=== PATIENT | male | born 1985 | race Caucasian/White ===

== ENCOUNTER 2018-02-08 19:56 | Emergency (ER) | payer SELFPAY ==
[2018-02-08 20:35] LABS: Absolute Monocytes 0.9 K/uL (0.1-1.3); Absolute Neutrophil 4.7 K/uL (1.8-8.0); Basophils % 0.8 % (0-1.3); Eosinophils % 3.7 % (0-4.4); Hematocrit 42.6 % (39.6-49.0); Lymphocytes % 25.3 % (15.3-44.8); MCH 30.9 pg (27.0-35.0); MCV 91.9 fL (80-100); MPV 8.7 fL (7.6-11.3); Monocytes % 11.6 % (3.3-12.3); RBC Red Blood Cell Count 4.63 M/uL (4.33-5.43)
[2018-02-08 20:37] LABS: Protime INR 0.96
[2018-02-08 20:45] LABS: Barbiturates NEGATIVE (NEGATIVE); Benzodiazepines NEGATIVE (NEGATIVE); Cocaine NEGATIVE (NEGATIVE); METHAMPHETAM NEGATIVE (NEGATIVE); Methadone NEGATIVE (NEGATIVE); Opiates NEGATIVE (NEGATIVE); Phencyclidine NEGATIVE (NEGATIVE); THC Cannibis NEGATIVE (NEGATIVE)
[2018-02-08 20:50] LABS: ALT/SGPT 30 U/L (12-78); AST/SGOT 14 U/L (15-37); Albumin 3.9 g/dL (3.4-5.0); Alkaline Phosphatase 88 U/L (45-117); BUN Blood Urea Nitrogen 6 mg/dL (7-18); Bicarbonate 25 mmol/L (21-32); Bilirubin Direct < 0.1 mg/dL (0-0.2); Bilirubin Total 0.2 mg/dL (0.2-1.0); Glucose Level 90 mg/dL (74-106); Protein, Total 7.3 g/dL (6.4-8.2); Sodium Level 141 mmol/L (136-145)
[2018-02-08 20:59] LABS: Urine Blood NEGATIVE (NEG); Urine Glucose NEGATIVE (NEG); Urine Protein NEGATIVE (NEG); Urine Specific Gravity 1.015 (1.005-1.030)
[2018-02-09] MEDS ORDERED: QUETIAPINE 100MG TAB ONE ×2 (03:23→22:33)
[2018-02-09] MEDS ORDERED: GABAPENTIN 300 MG CAP ONE ×2 (10:37→22:10)
[2018-02-09] MEDS ORDERED: FLUOXETINE 20 MG CAP PO ONE (11:00)
[2018-02-09] MEDS ORDERED: BUSPIRONE HCL 5 MG TABLET PO ONE (11:00)
--- NOTE | 2018-02-10 08:14 | EKG ---
Test Date: 2018-02-08 Test Time: 20:27:30 Milk Handler: VERONIQUE MEASUREMENT RESULTS: Intervals: Rate: 84 FL: 142 QRSD: 86 QT: 360 QTc: 425 [place]: P: 39 FL: 142 QRS: 51 T: 40 INTERPRETIVE STATEMENTS: Normal sinus rhythm Normal ECG No previous ECG available for comparison Electronically Signed On 02-10-18 08:13:52 CDT by Ray Romo
--- NOTE | 2018-02-10 08:53 | ER ---
Nurse's Notes [facility] Name: Joaquin Poe Age: 32 yrs Sex: Male : 1985 Arrival Date: 02/08/2018 Time: 20:01 Bed 18 Private MD: Diagnosis: Bipolar disorder;Major depressive disorder, recurrent;Suicidal ideations Presentation: 02/08 20:21 Presenting complaint: BROUGHT IN BY [facility] FOR SUICIDAL IDEATION, H/O SAME bp MX TIMES, FAILED OUTPATIENT THERAPY THROUGH [facility]. Transition of care: patient was not received from another setting of care. Onset of symptoms is unknown. Risk Assessment: Do you want to hurt yourself or someone else? Patient reports desire/thoughts of hurting themselves or someone else. Provider notified. Initial Sepsis Screen: Does the patient meet any 2 criteria? No. Patient's initial sepsis screen is negative. Does the patient have a suspected source of infection? No. Patient's initial sepsis screen is negative. Care prior to arrival: None. 20:21 Method Of Arrival: Law Enforcement: [facility] bp 20:21 Acuity: KIMBERLY 2 bp Triage Assessment: 20:23 General: Appears in no apparent distress. comfortable, Behavior is calm, cooperative, bp appropriate for age. Pain: Denies pain. Historical: - Allergies: 20:29 Keflex; bp - Home Meds: 20:20 fluoxetine 20 mg Oral cap 3 caps once daily [Active]; quetiapine 100 mg oral tab 1 tab bp every morning [Active]; quetiapine 300 mg oral tab 1 tab nightly [Active]; gabapentin 600 mg oral tab 1 tab 3 times per day [Active]; buspirone 10 mg Oral tab 1 tab 2 times per day [Active]; - PMHx: 20:29 Bipolar disorder; SCHIZOAFFECTIVE D/O; Depression; bp - Immunization history:: Adult Immunizations up to date. - Social history:: Smoking status: Patient uses tobacco products, smokes one pack cigarettes per day. - Family history:: not pertinent. - Ebola Screening: : Patient negative for fever greater than or equal to 101.5 degrees Fahrenheit, and additional compatible Ebola Virus Disease symptoms Patient denies exposure to infectious person Patient denies travel to an Ebola-affected area in the 21 days before illness onset No symptoms or risks identified at this time. - Hospitalizations: : No recent hospitalization is reported. Screenin:15 Abuse screen: Denies threats or abuse. Denies injuries from another. Nutritional bp screening: No deficits noted. Tuberculosis screening: No symptoms or risk factors identified. Fall Risk None identified. Assessment: 20:15 General: Appears in no apparent distress. comfortable, Behavior is calm, cooperative, bp appropriate for age. Pain: Denies pain. Neuro: Level of Consciousness is awake, alert, obeys commands, Oriented to person, place, time, situation, Appropriate for age. Cardiovascular: No deficits noted. Respiratory: Airway is patent Respiratory effort is even, unlabored, Respiratory pattern is regular, symmetrical. GI: No signs and/or symptoms were reported involving the gastrointestinal system. : No signs and/or symptoms were reported regarding the genitourinary system. EENT: No deficits noted. Derm: No deficits noted. Musculoskeletal: Circulation, motion, and sensation intact. Range of motion: intact in all extremities. 23:51 Reassessment: ALL CURRENT ORDERS COMPLETED, MEDICALLY CLEARED, PSYCH PLACEMENT PENDING. bp 02/09 07:05 Reassessment: pt resting in stretcher, eyes closed, respirations even and unlabored. la1 08:03 Reassessment: Patient appears in no apparent distress at this time. Patient and/or la1 family updated on plan of care and expected duration. Pain level reassessed. 09:26 Reassessment: Patient appears in no apparent distress at this time. No changes from la1 previously documented assessment. Patient and/or family updated on plan of care and expected duration. Pain level reassessed. Patient is alert, oriented x 3, equal unlabored respirations, skin warm/dry/pink. 10:13 General: Appears in no apparent distress. comfortable, Behavior is calm, cooperative, aj1 appropriate for age. Pain: Denies pain. Neuro: Level of Consciousness is awake, alert, obeys commands, Oriented to person, place, time, situation. Cardiovascular: Patient's skin is warm and dry. Respiratory: Airway is patent Respiratory effort is even, unlabored, Respiratory pattern is regular, symmetrical. GI: No signs and/or symptoms were reported involving the gastrointestinal system. : No signs and/or symptoms were reported regarding the genitourinary system. EENT: No signs and/or symptoms were reported regarding the EENT system. Derm: No signs and/or symptoms reported regarding the dermatologic system. Skin is pink, warm \T\ dry. normal. Musculoskeletal: No signs and/or symptoms reported regarding the musculoskeletal system. Circulation, motion, and sensation intact. 10:35 Reassessment: Patient states that his back is starting to hurts. Reports that he aj1 usually takes gabapentin to manage his pain. He would like his normal morning medications. Notified Dr. Shea. Order received. 11:30 Reassessment: Patient appears in no apparent distress at this time. No changes from aj1 previously documented assessment. Patient and/or family updated on plan of care and expected duration. Pain level reassessed. 12:30 Reassessment: Patient appears in no apparent distress at this time. No changes from aj1 previously documented assessment. Patient and/or family updated on plan of care and expected duration. Pain level reassessed. Patient is alert, oriented x 3, equal unlabored respirations, skin warm/dry/pink. 13:14 Reassessment: Patient appears in no apparent distress at this time. No changes from aj1 previously documented assessment. Patient and/or family updated on plan of care and expected duration. Pain level reassessed. Patient is alert, oriented x 3, equal unlabored respirations, skin warm/dry/pink. 15:15 Reassessment: Patient appears in no apparent distress at this time. No changes from aj1 previously documented assessment. Patient and/or family updated on plan of care and expected duration. Pain level reassessed. Patient is alert, oriented x 3, equal unlabored respirations, skin warm/dry/pink. 16:15 Reassessment: Patient appears in no apparent distress at this time. No changes from aj1 previously documented assessment. Patient and/or family updated on plan of care and expected duration. Pain level reassessed. Patient is alert, oriented x 3, equal unlabored respirations, skin warm/dry/pink. 17:15 Reassessment: Patient appears in no apparent distress at this time. No changes from aj1 previously documented assessment. Patient and/or family updated on plan of care and expected duration. Pain level reassessed. Patient is alert, oriented x 3, equal unlabored respirations, skin warm/dry/pink. 18:15 Reassessment: Patient appears in no apparent distress at this time. No changes from aj1 previously documented assessment. Patient and/or family updated on plan of care and expected duration. Pain level reassessed. Patient is alert, oriented x 3, equal unlabored respirations, skin warm/dry/pink. 19:09 Reassessment: Patient appears in no apparent distress at this time. No changes from aj1 previously documented assessment. Patient and/or family updated on plan of care and expected duration. Pain level reassessed. Patient is alert, oriented x 3, equal unlabored respirations, skin warm/dry/pink. 19:20 Reassessment: Patient appears in no apparent distress at this time. No changes from jd3 previously documented assessment. Patient and/or family updated on plan of care and expected duration. Pain level reassessed. Patient is alert, oriented x 3, equal unlabored respirations, skin warm/dry/pink. sitter at bedside, pt resting in bed watching TV. 20:00 Reassessment: Patient appears in no apparent distress at this time. No changes from jd3 previously documented assessment. Patient and/or family updated on plan of care and expected duration. Pain level reassessed. Patient is alert, oriented x 3, equal unlabored respirations, skin warm/dry/pink. 21:00 Reassessment: Patient appears in no apparent distress at this time. No changes from jd3 previously documented assessment. Patient and/or family updated on plan of care and expected duration. Pain level reassessed. Patient is alert, oriented x 3, equal unlabored respirations, skin warm/dry/pink. 22:00 Reassessment: Patient appears in no apparent distress at this time. No changes from jd3 previously documented assessment. Patient and/or family updated on plan of care and expected duration. Pain level reassessed. Patient is alert, oriented x 3, equal unlabored respirations, skin warm/dry/pink. asking for night time medications, provider notified, new orders received, see MAR. 23:00 Reassessment: Patient appears in no apparent distress at this time. Patient and/or jd3 family updated on plan of care and expected duration. Pain level reassessed. Patient is alert, oriented x 3, equal unlabored respirations, skin warm/dry/pink. resting in bed, snack given. 02/10 00:00 Reassessment: Patient appears in no apparent distress at this time. Patient and/or jd3 family updated on plan of care and expected duration. Pain level reassessed. Patient is alert, oriented x 3, equal unlabored respirations, skin warm/dry/pink. resting in bed with eyes closed. sitter at bedside. 01:00 Reassessment: Patient appears in no apparent distress at this time. No changes from jd3 previously documented assessment. Patient and/or family updated on plan of care and expected duration. Pain level reassessed. Patient is alert, oriented x 3, equal unlabored respirations, skin warm/dry/pink. 02:00 Reassessment: Patient appears in no apparent distress at this time. No changes from jd3 previously documented assessment. Patient and/or family updated on plan of care and expected duration. Pain level reassessed. Patient is alert, oriented x 3, equal unlabored respirations, skin warm/dry/pink. 03:00 Reassessment: Patient appears in no apparent distress at this time. No changes from jd3 previously documented assessment. Patient and/or family updated on plan of care and expected duration. Pain level reassessed. Patient is alert, oriented x 3, equal unlabored respirations, skin warm/dry/pink. 04:00 Reassessment: Patient appears in no apparent distress at this time. No changes from jd3 previously documented assessment. Patient and/or family updated on plan of care and expected duration. Pain level reassessed. Patient is alert, oriented x 3, equal unlabored respirations, skin warm/dry/pink. 05:00 Reassessment: Patient appears in no apparent distress at this time. No changes from jd3 previously documented assessment. Patient and/or family updated on plan of care and expected duration. Pain level reassessed. Patient is alert, oriented x 3, equal unlabored respirations, skin warm/dry/pink. 06:00 Reassessment: Patient appears in no apparent distress at this time. No changes from jd3 previously documented assessment. Patient and/or family updated on plan of care and expected duration. Pain level reassessed. Patient is alert, oriented x 3, equal unlabored respirations, skin warm/dry/pink. Psych: 02/08 20:15 Subjective: Patient's mood is sad, Delusions are denied, Hallucinations are denied bp Having thoughts of suicide. Plan for suicide is RUN INTO TRAFFIC. Objective: Patient is cooperative, Speech is normal, Affect is appropriate. Interventions: Removed personal items and placed in bag. Patient placed in hospital gown. Searched person for dangerous items. Urine collected and sent for urine drug test. Belonging list filled out. Suicide Risk Assessment: Sad Person Scale: Sex of patient: Male: Score 1 point. Age of patient: Score 1 point if patient 15-34. Depression: Score 1 point if signs of depression are present. Previous Attempt: Score 1 point if patient has previously attempted suicide. Substance Abuse: Score 1 point if patient abuses alcohol or drugs. Rational Thinking: Score 0 point if patient has rational thinking. Social Support: Score 1 point if social support is lacking and/or unavailable. Organized Plan: Score 0 if patient did not have an organized plan in place. Relationship: Score 1 point if patient is , , , or for a single male Chronic Sickness: Score 0 point if patient does not have a chronic illness, debilitating, or severe disorder. TOTAL POINTS: If total points are 7-10, the proposed clinical action is to hospitalize or commit. Implement suicide precautions. Safety Checks: Personal items have been removed. Door is open. No visitors are present at this time. Pt denies substance abuse. Commitment: Patient will be a voluntary commitment. Commitment papers completed. Vital Signs: 20:28 BP 134 / 86; Pulse 82; Resp 16; Temp 98; Pulse Ox 98% ; Weight 86.18 kg; Height 6 ft. bp (182.88 cm); 23:09 BP 116 / 89; Pulse 79; Resp 14; Pulse Ox 97% on R/A; bp 02/09 01:29 BP 119 / 82 LA Supine (auto/reg); Pulse 79 MON; Resp 14 S; Pulse Ox 98% on R/A; ds4 05:07 BP 116 / 76 LA Supine (auto/reg); Pulse 76 MON; Resp 14 S; Pulse Ox 98% on R/A; ds4 09:14 BP 112 / 75; Pulse 72; Resp 18; Temp 97.8; Pulse Ox 98% on R/A; fm2 13:15 BP 120 / 84; Pulse 82; Resp 18; Temp 97.7; Pulse Ox 99% on R/A; fm2 17:20 BP 129 / 78; Pulse 92; Resp 18; Temp 98.7; Pulse Ox 98% on R/A; fm2 20:00 BP 124 / 87; Pulse 76; Resp 18; Temp 99; Pulse Ox 97% ; mh6 09/24 00:00 BP 106 / 72; Pulse 82; Resp 16; Temp 98.2; Pulse Ox 96% on R/A; Pain 0/10; mh6 04:00 BP 99 / 74; Pulse 71; Resp 16; Temp 97.9; Pulse Ox 96% on R/A; Pain 0/10; mh6 08:28 BP 110 / 80; Pulse 86; Resp 20; Temp 98.2; hj 02/08 20:28 Body Mass Index 25.77 (86.18 kg, 182.88 cm) bp ED Course: 02/08 20:01 Patient arrived in ED. rn 20:01 Broderick Martin MD is Attending Physician. rn 20:01 Alverto Jarrett RN is Primary Nurse. bp 20:15 Safety Checks: Personal items have been removed. The door is open or patient has been bp placed in a hallway bed/chair. There are no family/friend visitors at this time Sitter present at this time. 20:15 Patient has correct armband on for positive identification. Placed in gown. Bed in low bp position. Side rails up X2. 20:23 Triage completed. bp 20:23 Arm band placed on. bp 20:30 Safety Checks: Personal items have been removed. The door is open or patient has been bp placed in a hallway bed/chair. Sitter present at this time. 20:30 Inserted saline lock: 20 gauge in right antecubital area, using aseptic technique. bp Blood collected. 20:32 Initial lab(s) drawn, by ED staff, sent to lab. Urine collected: clean catch specimen, bp clear, Legal drug screen obtained per protocol. 20:43 personal belongings catalogued. Clothing and personal items sent to [facility] with cc security. Medications logged and to be sent to pharmacy [facility] in the morning. 20:45 Safety Checks: Personal items have been removed. The door is open or patient has been bp placed in a hallway bed/chair. There are no family/friend visitors at this time Sitter present at this time. 21:00 Safety Checks: Personal items have been removed. The door is open or patient has been bp placed in a hallway bed/chair. There are no family/friend visitors at this time Sitter present at this time. 21:00 Safety checks: Items removed: yes. Door open/sign placed on door: yes. Family/friend ds4 present: no. Sitter present: Yes. 21:15 Safety Checks: Personal items have been removed. The door is open or patient has been bp placed in a hallway bed/chair. There are no family/friend visitors at this time Sitter present at this time. 21:15 Safety checks: Items removed: yes. Door open/sign placed on door: yes. Family/friend ds4 present: no. Sitter present: Yes. 21:30 Safety Checks: Personal items have been removed. The door is open or patient has been bp placed in a hallway bed/chair. There are no family/friend visitors at this time Sitter present at this time. 21:30 Safety checks: Items removed: yes. Door open/sign placed on door: yes. Family/friend ds4 present: no. Sitter present: Yes. 21:45 Safety Checks: Personal items have been removed. The door is open or patient has been bp placed in a hallway bed/chair. There are no family/friend visitors at this time Sitter present at this time. 22:00 Safety Checks: Personal items have been removed. The door is open or patient has been bp placed in a hallway bed/chair. There are no family/friend visitors at this time Sitter present at this time. 22:15 Safety Checks: Personal items have been removed. The door is open or patient has been bp placed in a hallway bed/chair. There are no family/friend visitors at this time Sitter present at this time. 22:30 Safety Checks: Personal items have been removed. The door is open or patient has been bp placed in a hallway bed/chair. There are no family/friend visitors at this time Sitter present at this time. 22:45 Safety Checks: Personal items have been removed. The door is open or patient has been bp placed in a hallway bed/chair. There are no family/friend visitors at this time Sitter present at this time. 23:00 Safety Checks: Personal items have been removed. The door is open or patient has been bp placed in a hallway bed/chair. There are no family/friend visitors at this time Sitter present at this time. 23:15 Safety Checks: Personal items have been removed. The door is open or patient has been bp placed in a hallway bed/chair. There are no family/friend visitors at this time Sitter present at this time. 23:30 Safety Checks: Personal items have been removed. The door is open or patient has been bp placed in a hallway bed/chair. There are no family/friend visitors at this time Sitter present at this time. 23:45 Safety Checks: Personal items have been removed. The door is open or patient has been bp placed in a hallway bed/chair. There are no family/friend visitors at this time Sitter present at this time. 02/09 00:00 Safety Checks: Personal items have been removed. The door is open or patient has been bp placed in a hallway bed/chair. There are no family/friend visitors at this time Sitter present at this time. 00:11 Safety checks: Door open/sign placed on door: Sitter present: Yes. Safety checks: Items ds4 removed: yes. Family/friend present: no. 00:15 Safety Checks: Personal items have been removed. The door is open or patient has been bp placed in a hallway bed/chair. There are no family/friend visitors at this time Sitter present at this time. 00:30 Safety Checks: Personal items have been removed. The door is open or patient has been bp placed in a hallway bed/chair. There are no family/friend visitors at this time Sitter present at this time. 00:45 Safety Checks: Personal items have been removed. The door is open or patient has been cc3 placed in a hallway bed/chair. There are no family/friend visitors at this time Sitter present at this time. 01:00 Safety Checks: Personal items have been removed. The door is open or patient has been cc3 placed in a hallway bed/chair. There are no family/friend visitors at this time Sitter present at this time. 01:15 Safety Checks: Personal items have been removed. The door is open or patient has been cc3 placed in a hallway bed/chair. There are no family/friend visitors at this time Sitter present at this time. 01:17 Safety checks: Items removed: yes. Door open/sign placed on door: yes. Family/friend ds4 present: no. Sitter present: Yes. 01:30 Safety Checks: Personal items have been removed. The door is open or patient has been cc3 placed in a hallway bed/chair. There are no family/friend visitors at this time Sitter present at this time. 01:45 Safety Checks: Personal items have been removed. The door is open or patient has been bp placed in a hallway bed/chair. There are no family/friend visitors at this time Sitter present at this time. 02:00 Safety Checks: Personal items have been removed. The door is open or patient has been bp placed in a hallway bed/chair. There are no family/friend visitors at this time Sitter present at this time. 02:00 Safety checks: Items removed: yes. Door open/sign placed on door: yes. Family/friend cc present: no. Sitter present: Yes. 02:15 Safety Checks: Personal items have been removed. The door is open or patient has been bp placed in a hallway bed/chair. There are no family/friend visitors at this time Sitter present at this time. 02:15 Safety checks: Items removed: yes. Door open/sign placed on door: yes. Family/friend cc present: no. Sitter present: Yes. 02:30 Safety Checks: Personal items have been removed. The door is open or patient has been bp placed in a hallway bed/chair. There are no family/friend visitors at this time Sitter present at this time. 02:45 Safety Checks: Personal items have been removed. The door is open or patient has been bp placed in a hallway bed/chair. There are no family/friend visitors at this time Sitter present at this time. 03:00 Safety Checks: Personal items have been removed. The door is open or patient has been bp placed in a hallway bed/chair. There are no family/friend visitors at this time Sitter present at this time. 03:15 Safety Checks: Personal items have been removed. The door is open or patient has been bp placed in a hallway bed/chair. There are no family/friend visitors at this time Sitter present at this time. 03:30 Safety Checks: Personal items have been removed. The door is open or patient has been bp placed in a hallway bed/chair. There are no family/friend visitors at this time Sitter present at this time. 03:45 Safety Checks: Personal items have been removed. The door is open or patient has been cc3 placed in a hallway bed/chair. There are no family/friend visitors at this time Sitter present at this time. 04:00 Safety Checks: Personal items have been removed. The door is open or patient has been cc3 placed in a hallway bed/chair. There are no family/friend visitors at this time Sitter present at this time. 04:15 Safety Checks: Personal items have been removed. The door is open or patient has been cc3 placed in a hallway bed/chair. There are no family/friend visitors at this time Sitter present at this time. 04:30 Safety Checks: Personal items have been removed. The door is open or patient has been cc3 placed in a hallway bed/chair. There are no family/friend visitors at this time Sitter present at this time. 04:45 Safety Checks: Personal items have been removed. The door is open or patient has been cc3 placed in a hallway bed/chair. There are no family/friend visitors at this time Sitter present at this time. 05:00 Safety Checks: Personal items have been removed. The door is open or patient has been bp placed in a hallway bed/chair. There are no family/friend visitors at this time Sitter present at this time. 05:15 Safety Checks: Personal items have been removed. The door is open or patient has been bp placed in a hallway bed/chair. There are no family/friend visitors at this time Sitter present at this time. 05:30 Safety Checks: Personal items have been removed. The door is open or patient has been bp placed in a hallway bed/chair. There are no family/friend visitors at this time Sitter present at this time. 05:45 Safety Checks: Personal items have been removed. The door is open or patient has been bp placed in a hallway bed/chair. There are no family/friend visitors at this time Sitter present at this time. 06:00 Safety Checks: Personal items have been removed. The door is open or patient has been bp placed in a hallway bed/chair. There are no family/friend visitors at this time Sitter present at this time. 06:15 Safety Checks: Personal items have been removed. The door is open or patient has been cc3 placed in a hallway bed/chair. There are no family/friend visitors at this time Sitter present at this time. 06:30 Safety Checks: Personal items have been removed. The door is open or patient has been cc3 placed in a hallway bed/chair. There are no family/friend visitors at this time Sitter present at this time. 06:45 Safety Checks: Personal items have been removed. The door is open or patient has been bp placed in a hallway bed/chair. There are no family/friend visitors at this time Sitter present at this time. 07:00 Safety Checks: Personal items have been removed. The door is not opened, nor is patient fm2 placed in a hallway bed/chair. Sitter present at this time. 07:15 Safety Checks: Personal items have been removed. The door is not opened, nor is patient fm2 placed in a hallway bed/chair. Sitter present at this time. 07:30 Safety Checks: Personal items have been removed. The door is not opened, nor is patient fm2 placed in a hallway bed/chair. Sitter present at this time. 07:45 Safety Checks: Personal items have been removed. The door is open or patient has been fm2 placed in a hallway bed/chair. Sitter present at this time. 08:00 Safety Checks: Personal items have been removed. The door is open or patient has been fm2 placed in a hallway bed/chair. Sitter present at this time. Safety Checks:. 08:15 Safety Checks: Personal items have been removed. The door is open or patient has been fm2 placed in a hallway bed/chair. Sitter present at this time. 08:30 Safety Checks: Personal items have been removed. The door is open or patient has been fm2 placed in a hallway bed/chair. Sitter present at this time. 08:45 Safety Checks: Personal items have been removed. The door is open or patient has been fm2 placed in a hallway bed/chair. Sitter present at this time. 09:00 Safety Checks: Personal items have been removed. The door is open or patient has been fm2 placed in a hallway bed/chair. Sitter present at this time. 09:15 Safety Checks: Personal items have been removed. The door is open or patient has been fm2 placed in a hallway bed/chair. Sitter present at this time. 09:30 Safety Checks: Personal items have been removed. The door is open or patient has been fm2 placed in a hallway bed/chair. Sitter present at this time. 09:45 Safety Checks: Personal items have been removed. The door is open or patient has been fm2 placed in a hallway bed/chair. Sitter present at this time. 10:00 Safety Checks: Personal items have been removed. The door is open or patient has been fm2 placed in a hallway bed/chair. Sitter present at this time. 10:15 Safety Checks: Personal items have been removed. The door is open or patient has been fm2 placed in a hallway bed/chair. Sitter present at this time. 10:30 Safety Checks: Personal items have been removed. The door is open or patient has been fm2 placed in a hallway bed/chair. Sitter present at this time. 10:45 Safety Checks: Personal items have been removed. The door is open or patient has been fm2 placed in a hallway bed/chair. Sitter present at this time. 11:00 Safety Checks: Personal items have been removed. The door is open or patient has been fm2 placed in a hallway bed/chair. Sitter present at this time. 11:15 Safety Checks: Personal items have been removed. The door is open or patient has been fm2 placed in a hallway bed/chair. Sitter present at this time. 11:30 Safety Checks: Personal items have been removed. The door is open or patient has been fm2 placed in a hallway bed/chair. Sitter present at this time. 11:45 Safety Checks: Personal items have been removed. The door is open or patient has been fm2 placed in a hallway bed/chair. Sitter present at this time. 12:00 Safety Checks: Personal items have been removed. The door is open or patient has been fm2 placed in a hallway bed/chair. Sitter present at this time. 12:15 Safety checks: Items removed: yes. Door open/sign placed on door: yes. Family/friend dh3 present: no. Sitter present: Yes. 12:30 Safety checks: Items removed: yes. Door open/sign placed on door: yes. Family/friend dh3 present: no. Sitter present: Yes. 12:45 Safety Checks: Personal items have been removed. The door is open or patient has been fm2 placed in a hallway bed/chair. Sitter present at this time. 13:00 Safety Checks: Personal items have been removed. The door is open or patient has been fm2 placed in a hallway bed/chair. Sitter present at this time. 13:15 Safety Checks: Personal items have been removed. The door is open or patient has been fm2 placed in a hallway bed/chair. Sitter present at this time. 13:30 Safety Checks: Personal items have been removed. The door is open or patient has been fm2 placed in a hallway bed/chair. Sitter present at this time. 13:30 Safety checks: Items removed: yes. Door open/sign placed on door: yes. Family/friend dh3 present: no. Sitter present: Yes. 13:45 Safety Checks: Personal items have been removed. The door is open or patient has been fm2 placed in a hallway bed/chair. Sitter present at this time. 13:45 Safety checks: Items removed: yes. Door open/sign placed on door: yes. Family/friend dh3 present: no. Sitter present: Yes. 14:00 Safety Checks: Personal items have been removed. The door is open or patient has been fm2 placed in a hallway bed/chair. Sitter present at this time. 14:00 Safety checks: Items removed: yes. Door open/sign placed on door: yes. Family/friend dh3 present: no. Sitter present: Yes. 14:15 Safety Checks: Personal items have been removed. The door is open or patient has been fm2 placed in a hallway bed/chair. Sitter present at this time. 14:15 Safety checks: Items removed: yes. Door open/sign placed on door: yes. Family/friend dh3 present: no. Sitter present: Yes. 14:30 Safety Checks: Personal items have been removed. The door is open or patient has been fm2 placed in a hallway bed/chair. Sitter present at this time. 14:30 Safety checks: Items removed: yes. Door open/sign placed on door: yes. Family/friend dh3 present: no. Sitter present: Yes. 14:45 Safety Checks: Personal items have been removed. The door is open or patient has been fm2 placed in a hallway bed/chair. Sitter present at this time. 15:00 Safety Checks: Personal items have been removed. The door is open or patient has been fm2 placed in a hallway bed/chair. Sitter present at this time. 15:15 Safety Checks: Personal items have been removed. The door is open or patient has been fm2 placed in a hallway bed/chair. Sitter present at this time. 15:30 Safety Checks: Personal items have been removed. The door is open or patient has been fm2 placed in a hallway bed/chair. Sitter present at this time. 15:45 Safety Checks: Personal items have been removed. The door is open or patient has been fm2 placed in a hallway bed/chair. Sitter present at this time. 16:00 Safety Checks: Personal items have been removed. The door is open or patient has been fm2 placed in a hallway bed/chair. Sitter present at this time. 16:15 Safety Checks: Personal items have been removed. The door is open or patient has been fm2 placed in a hallway bed/chair. Sitter present at this time. 16:30 Safety Checks: Personal items have been removed. The door is open or patient has been fm2 placed in a hallway bed/chair. Sitter present at this time. 16:45 Safety Checks: Personal items have been removed. The door is open or patient has been fm2 placed in a hallway bed/chair. Sitter present at this time. 17:00 Safety Checks: Personal items have been removed. The door is open or patient has been fm2 placed in a hallway bed/chair. Sitter present at this time. 17:15 Safety Checks: Personal items have been removed. The door is open or patient has been fm2 placed in a hallway bed/chair. Sitter present at this time. 17:30 Safety Checks: Personal items have been removed. The door is open or patient has been fm2 placed in a hallway bed/chair. Sitter present at this time. 17:45 Safety Checks: Personal items have been removed. The door is open or patient has been fm2 placed in a hallway bed/chair. Sitter present at this time. 18:00 Safety Checks: Personal items have been removed. The door is open or patient has been fm2 placed in a hallway bed/chair. Sitter present at this time. 18:15 Safety Checks: Personal items have been removed. The door is open or patient has been fm2 placed in a hallway bed/chair. Sitter present at this time. 18:33 Safety Checks: Personal items have been removed. The door is open or patient has been fm2 placed in a hallway bed/chair. Sitter present at this time. 18:45 Safety Checks: Personal items have been removed. The door is open or patient has been fm2 placed in a hallway bed/chair. Sitter present at this time. 19:00 Safety Checks: Personal items have been removed. The door is open or patient has been fm2 placed in a hallway bed/chair. Sitter present at this time. 19:00 Safety checks: Items removed: yes. Door open/sign placed on door: yes. Family/friend cc1 present: no. Sitter present: Yes. 19:15 Safety checks: Items removed: yes. Door open/sign placed on door: yes. Family/friend cc1 present: no. Sitter present: Yes. 19:30 Safety checks: Items removed: yes. Door open/sign placed on door: yes. Family/friend cc1 present: no. Sitter present: Yes. 19:45 Safety Checks: Personal items have been removed. The door is open or patient has been jd3 placed in a hallway bed/chair. There are no family/friend visitors at this time Sitter present at this time. 20:00 No apparent distress. Resting quietly. Safety Checks: Personal items have been removed. mh6 The door is open or patient has been placed in a hallway bed/chair. There are no family/friend visitors at this time Sitter present at this time. 20:15 Safety Checks: Personal items have been removed. The door is open or patient has been jd3 placed in a hallway bed/chair. There are no family/friend visitors at this time Sitter present at this time. 20:30 Safety Checks: Personal items have been removed. The door is open or patient has been jd3 placed in a hallway bed/chair. There are no family/friend visitors at this time Sitter present at this time. 20:45 Safety Checks: Personal items have been removed. The door is open or patient has been jd3 placed in a hallway bed/chair. There are no family/friend visitors at this time Sitter present at this time. 21:00 Safety Checks: Personal items have been removed. The door is open or patient has been jd3 placed in a hallway bed/chair. There are no family/friend visitors at this time Sitter present at this time. 21:15 Safety Checks: Personal items have been removed. The door is open or patient has been jd3 placed in a hallway bed/chair. There are no family/friend visitors at this time Sitter present at this time. 21:30 Safety Checks: Personal items have been removed. The door is open or patient has been jd3 placed in a hallway bed/chair. There are no family/friend visitors at this time Sitter present at this time. 21:45 Safety Checks: Personal items have been removed. The door is open or patient has been jd3 placed in a hallway bed/chair. There are no family/friend visitors at this time Sitter present at this time. 22:00 Safety Checks: Personal items have been removed. The door is open or patient has been jd3 placed in a hallway bed/chair. There are no family/friend visitors at this time Sitter present at this time. 22:15 Safety Checks: Personal items have been removed. The door is open or patient has been jd3 placed in a hallway bed/chair. There are no family/friend visitors at this time Sitter present at this time. 22:30 Safety Checks: Personal items have been removed. The door is open or patient has been jd3 placed in a hallway bed/chair. There are no family/friend visitors at this time Sitter present at this time. 22:45 Safety Checks: Personal items have been removed. The door is open or patient has been jd3 placed in a hallway bed/chair. There are no family/friend visitors at this time Sitter present at this time. 23:00 Safety Checks: Personal items have been removed. The door is open or patient has been jd3 placed in a hallway bed/chair. There are no family/friend visitors at this time Sitter present at this time. 23:15 Safety Checks: Personal items have been removed. The door is open or patient has been jd3 placed in a hallway bed/chair. There are no family/friend visitors at this time Sitter present at this time. 23:30 Safety Checks: Personal items have been removed. The door is open or patient has been jd3 placed in a hallway bed/chair. There are no family/friend visitors at this time Sitter present at this time. 23:45 No apparent distress. Resting quietly. Safety Checks: Personal items have been removed. mh6 The door is open or patient has been placed in a hallway bed/chair. There are no family/friend visitors at this time Sitter present at this time. 02/10 00:00 No apparent distress. Resting quietly. Patient requests food. Safety Checks: Personal mh6 items have been removed. The door is open or patient has been placed in a hallway bed/chair. There are no family/friend visitors at this time Sitter present at this time. 00:15 No apparent distress. Appears to be sleeping. Safety Checks: Personal items have been mh6 removed. The door is open or patient has been placed in a hallway bed/chair. There are no family/friend visitors at this time Sitter present at this time. 00:30 No apparent distress. Appears to be sleeping. Safety Checks: Personal items have been mh6 removed. The door is open or patient has been placed in a hallway bed/chair. There are no family/friend visitors at this time Sitter present at this time. 00:45 Appears to be sleeping. No apparent distress. Safety Checks: Personal items have been mh6 removed. The door is open or patient has been placed in a hallway bed/chair. There are no family/friend visitors at this time Sitter present at this time. 01:00 No apparent distress. Appears to be sleeping. Safety Checks: Personal items have been mh6 removed. The door is open or patient has been placed in a hallway bed/chair. There are no family/friend visitors at this time Sitter present at this time. 01:15 No apparent distress. Appears to be sleeping. Safety Checks: Personal items have been mh6 removed. The door is open or patient has been placed in a hallway bed/chair. There are no family/friend visitors at this time Sitter present at this time. 01:30 No apparent distress. Appears to be sleeping. Safety Checks: Personal items have been mh6 removed. The door is open or patient has been placed in a hallway bed/chair. There are no family/friend visitors at this time Sitter present at this time. 01:45 No apparent distress. Appears to be sleeping. Safety Checks: Personal items have been mh6 removed. The door is open or patient has been placed in a hallway bed/chair. There are no family/friend visitors at this time Sitter present at this time. 02:00 No apparent distress. Appears to be sleeping. Safety Checks: Personal items have been mh6 removed. The door is open or patient has been placed in a hallway bed/chair. There are no family/friend visitors at this time Sitter present at this time. 02:15 No apparent distress. Appears to be sleeping. Safety Checks: Personal items have been mh6 removed. The door is open or patient has been placed in a hallway bed/chair. There are no family/friend visitors at this time Sitter present at this time. 02:30 No apparent distress. Appears to be sleeping. Safety Checks: Personal items have been mh6 removed. The door is open or patient has been placed in a hallway bed/chair. There are no family/friend visitors at this time Sitter present at this time. 02:45 No apparent distress. Appears to be sleeping. Safety Checks: Personal items have been mh6 removed. The door is open or patient has been placed in a hallway bed/chair. There are no family/friend visitors at this time Sitter present at this time. 03:00 No apparent distress. Appears to be sleeping. Safety Checks: Personal items have been mh6 removed. The door is open or patient has been placed in a hallway bed/chair. There are no family/friend visitors at this time Sitter present at this time. 03:15 No apparent distress. Appears to be sleeping. Safety Checks: Personal items have been mh6 removed. The door is open or patient has been placed in a hallway bed/chair. There are no family/friend visitors at this time Sitter present at this time. 03:30 No apparent distress. Appears to be sleeping. Safety Checks: Personal items have been mh6 removed. The door is open or patient has been placed in a hallway bed/chair. There are no family/friend visitors at this time Sitter present at this time. 03:45 No apparent distress. Appears to be sleeping. Safety Checks: Personal items have been mh6 removed. The door is open or patient has been placed in a hallway bed/chair. There are no family/friend visitors at this time Sitter present at this time. 04:00 No apparent distress. Appears to be sleeping. Safety Checks: Personal items have been mh6 removed. The door is open or patient has been placed in a hallway bed/chair. There are no family/friend visitors at this time Sitter present at this time. 04:15 No apparent distress. Appears to be sleeping. Safety Checks: Personal items have been mh6 removed. The door is open or patient has been placed in a hallway bed/chair. There are no family/friend visitors at this time Sitter present at this time. 04:30 No apparent distress. Appears to be sleeping. Safety Checks: Personal items have been mh6 removed. The door is open or patient has been placed in a hallway bed/chair. There are no family/friend visitors at this time Sitter present at this time. 04:45 No apparent distress. Appears to be sleeping. Safety Checks: Personal items have been mh6 removed. The door is open or patient has been placed in a hallway bed/chair. There are no family/friend visitors at this time Sitter present at this time. 05:00 Appears to be sleeping. Safety Checks: Personal items have been removed. The door is mh6 open or patient has been placed in a hallway bed/chair. There are no family/friend visitors at this time Sitter present at this time. 05:15 No apparent distress. Appears to be sleeping. Safety Checks: Personal items have been mh6 removed. The door is open or patient has been placed in a hallway bed/chair. There are no family/friend visitors at this time Sitter present at this time. 05:30 No apparent distress. Appears to be sleeping. Safety Checks: Personal items have been mh6 removed. The door is open or patient has been placed in a hallway bed/chair. There are no family/friend visitors at this time Sitter present at this time. 05:45 No apparent distress. Appears to be sleeping. Safety Checks: Personal items have been mh6 removed. The door is open or patient has been placed in a hallway bed/chair. There are no family/friend visitors at this time Sitter present at this time. 06:00 No apparent distress. Appears to be sleeping. Safety Checks: Personal items have been mh6 removed. The door is open or patient has been placed in a hallway bed/chair. There are no family/friend visitors at this time Sitter present at this time. 06:15 No apparent distress. Appears to be sleeping. Safety Checks: Personal items have been mh6 removed. The door is open or patient has been placed in a hallway bed/chair. There are no family/friend visitors at this time Sitter present at this time. 06:30 No apparent distress. Appears to be sleeping. Safety Checks: Personal items have been mh6 removed. The door is open or patient has been placed in a hallway bed/chair. There are no family/friend visitors at this time Sitter present at this time. 06:45 No apparent distress. Appears to be sleeping. Safety Checks: Personal items have been mh6 removed. The door is open or patient has been placed in a hallway bed/chair. There are no family/friend visitors at this time Sitter present at this time. 07:00 No apparent distress. Appears to be sleeping. Safety Checks: Personal items have been mh6 removed. The door is open or patient has been placed in a hallway bed/chair. There are no family/friend visitors at this time Sitter present at this time. 07:00 No apparent distress. Appears to be sleeping. Safety Checks: Personal items have been ss3 removed. The door is open or patient has been placed in a hallway bed/chair. There are no family/friend visitors at this time Sitter present at this time. 07:15 No apparent distress. Appears to be sleeping. Safety Checks: Personal items have been ss3 removed. The door is open or patient has been placed in a hallway bed/chair. There are no family/friend visitors at this time Sitter present at this time. 07:30 AWAKE.HAVING HIS BREAKFAST. Patient requests liquids. Safety Checks: Personal items ss3 have been removed. The door is open or patient has been placed in a hallway bed/chair. There are no family/friend visitors at this time Sitter present at this time. 07:45 Resting quietly. Watching TV. Patient requests rest room assistance. Safety Checks: ss3 Personal items have been removed. The door is open or patient has been placed in a hallway bed/chair. There are no family/friend visitors at this time Sitter present at this time. 07:57 Diet: Patient given a regular meal tray. mh5 08:00 No apparent distress. Safety Checks: Personal items have been removed. The door is open ss3 or patient has been placed in a hallway bed/chair. The door is not opened, nor is patient placed in a hallway bed/chair. Sitter present at this time. 08:15 No apparent distress. Patient requests rest room assistance. Safety Checks: Personal ss3 items have been removed. The door is open or patient has been placed in a hallway bed/chair. There are no family/friend visitors at this time Sitter present at this time. 08:30 No apparent distress. Patient requests liquids. [facility] [employer]. ss3 08:45 No apparent distress. Safety Checks: Personal items have been removed. The door is open ss3 or patient has been placed in a hallway bed/chair. A family member and/or friend is present and encouraged to stay. [facility] [employer] Operator talking to the patient. Sitter present at this time. Safety Checks: Personal items have been removed. The door is open or patient has been placed in a hallway bed/chair. A family member and/or friend is present and encouraged to stay. still with [facility] Rep. Sitter present at this time. 08:50 Attending Physician role handed off by Broderick Martin MD [facility] 08:50 Rito Shea MD is Attending Physician. marisela 09:00 No apparent distress. Awaiting disposition. ss3 09:15 No apparent distress. Awaiting: discharge.IV access removed. Safety Checks: Personal ss3 items have been removed. The door is open or patient has been placed in a hallway bed/chair. A family member and/or friend is present and encouraged to stay. [place] Rep. Sitter present at this time. Other: Processing discharge. Safety Checks: Personal items have been removed. The door is open or patient has been placed in a hallway bed/chair. Sitter present at this time. 09:17 No provider procedures requiring assistance completed. IV discontinued, intact, hj bleeding controlled, No redness/swelling at site. Pressure dressing applied. Administered Medications: 02/09 03:33 Drug: SEROquel 300 mg Route: PO; bp 04:30 Follow up: Response: No adverse reaction; Anxiety decreased bp 10:36 CANCELLED (Duplicate Order): PROzac 60 mg PO once aj1 10:37 Drug: Gabapentin 600 mg Route: PO; aj1 11:17 Drug: PROzac 60 mg Route: PO; aj1 11:17 Drug: busPIRone 10 mg Route: PO; aj1 22:32 Drug: SEROquel 300 mg Route: PO; jd3 23:39 Follow up: Response: No adverse reaction jd3 22:32 Drug: Gabapentin 600 mg Route: PO; jd3 23:39 Follow up: Response: No adverse reaction jd3 Outcome: 02/10 08:52 Discharge ordered by . marisela 09:17 Discharged to home ambulatory. 09:17 Condition: stable 09:17 Discharge instructions given to patient, Instructed on discharge instructions, follow up and referral plans. Demonstrated understanding of instructions, follow-up care. 09:18 Patient left the ED. hj Signatures: Opal Espinosa RN RN aj1 Rito Shea MD MD cha Nieto, Roman, MD MD rn Christian, Chelsea cc Cahoon, Charlie cc1 Troy Loving ds4 Mike Chapman RN RN laJaswant Jaramillo RN Mariam Fay RN RN tl2 Leah Barrett 5 Deja Hernandez 3 Jose Manuel Mckeon RN RN jAlverto Khan RN RN bp Habalo, Maria 6 Saira Hyman cc3 Kirill Lieberman 2 Luann Vuong ss3 Corrections: (The following items were deleted from the chart) 02/09 06:27 06:15 Safety Checks: Personal items have been removed. The door is open or patient has tl2 been placed in a hallway bed/chair. There are no family/friend visitors at this time Sitter present at this time. tl2 20:14 20:[address] [facility] 02/10 01:07 01:06 Reassessment: Patient appears in no apparent distress at this time. No changes jd3 from previously documented assessment. Patient and/or family updated on plan of care and expected duration. Pain level reassessed. Patient is alert, oriented x 3, equal unlabored respirations, skin warm/dry/pink. jd3 03:33 03:32 Reassessment: Patient appears in no apparent distress at this time. No changes jd3 from previously documented assessment. Patient and/or family updated on plan of care and expected duration. Pain level reassessed. Patient is alert, oriented x 3, equal unlabored respirations, skin warm/dry/pink. jd3
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
--- OUTSIDE RECORDS SUMMARY | 2018-02-10 11:59 | XMS REPORT | Clinical Summary ---
:1985 Author Organization [facility] Address [address] [place] [address] Care Team Providers Name Role Phone Asked, No Pcp Primary Care Provider Unavailable Allergies Active Allergy Reactions Severity Noted Date Comments Cephalexin Rash Low 07/25/2017 Current Medications Prescription Sig. Disp. Refills Start Date End Date Status sulfamethoxazole-trim Take 1 tablet 16 tablet 0 07/31/2017 08/08/2017 ethoprim (BACTRIM DS) by mouth every 800-160 mg per 12 (twelve) tabletIndications: hours for 8 Skin and Skin days. Structure Infection hydrOXYzine (ATARAX) Take 1 tablet 50 tablet 0 07/31/2017 08/30/2017 50 MG (50 mg total) tabletIndications: by mouth 3 Anxiety (three) times a day as needed for itching for up to 30 days. QUEtiapine (SEROquel) Take 1 tablet 30 tablet 0 07/31/2017 08/30/2017 100 MG (100 mg total) tabletIndications: by mouth every Psychosis morning for 30 days. QUEtiapine (SEROquel) Take 1 tablet 30 tablet 0 07/31/2017 08/30/2017 300 MG (300 mg total) tabletIndications: by mouth Psychosis nightly for 30 days. FLUoxetine (PROzac) Take 1 capsule 30 capsule 0 07/31/2017 08/30/2017 40 MG (40 mg total) capsuleIndications: by mouth daily Major Depressive for 30 days. Disorder traZODone (DESYREL) Take 1 tablet 30 tablet 0 07/31/2017 08/30/2017 50 MG (50 mg total) tabletIndications: by mouth insomnia associated nightly as with depression needed for sleep for up to 30 days. nicotine (NICODERM Place 1 patch 30 patch 0 07/31/2017 08/30/2017 CQ) 14 mg/24 on the skin hrIndications: daily for 30 Smoking Cessation days. clonAZEPAM (KlonoPIN) Take 1 tablet 60 tablet 0 09/11/2017 10/11/2017 0.5 MG (0.5 mg total) tabletIndications: by mouth 2 anxiety (two) times a day as needed for anxiety for up to 30 days. gabapentin Take 1 capsule 90 capsule 0 09/11/2017 10/11/2017 (NEURONTIN) 300 mg (300 mg total) capsuleIndications: by mouth 3 anxiety (three) times a day for 30 days. QUEtiapine (SEROquel) Take 1 tablet 30 tablet 0 09/11/2017 10/11/2017 100 MG (100 mg total) tabletIndications: by mouth every Depression Treatment morning for 30 Adjunct days. QUEtiapine (SEROquel) Take 1 tablet 30 tablet 0 09/11/2017 10/11/2017 300 MG (300 mg total) tabletIndications: by mouth Depression Treatment nightly for 30 Adjunct days. FLUoxetine (PROzac) Take 1 capsule 30 capsule 0 09/11/2017 10/11/2017 40 MG (40 mg total) capsuleIndications: by mouth every Anxiety with morning for 30 Depression days. traZODone (DESYREL) Take 1 tablet 30 tablet 0 09/11/2017 10/11/2017 50 MG (50 mg total) tabletIndications: by mouth insomnia associated nightly for 30 with depression days. nicotine polacrilex Chew 1 each (2 100 each 0 09/11/2017 10/11/2017 (NICORETTE) 2 mg mg total) every gumIndications: 2 (two) hours Smoking Cessation as needed (Cravings) for up to 30 days. Active Problems Problem Noted Date MDD (major depressive disorder), recurrent, severe, with psychosis 09/07/2017 Schizoaffective disorder, bipolar type 07/25/2017 Stimulant use disorder 07/25/2017 Anxiety disorder 07/25/2017 Encounters Date Type Specialty Care Team Description 01/26/2018 Intake Access N/A 09/06/2017 - Hospital Encounter Psychiatry Arun Benson MD 09/11/2017 07/25/2017 - Hospital Encounter Psychiatry Darya Davis MD 07/31/2017 Arun Benson MD after 02/09/2017 Social History Tobacco Use Types Packs/Day Years Used Date Never Assessed Sex Assigned at Date Recorded Not on file Last Filed Vital Signs Vital Sign Reading Time Taken Blood Pressure 132/71 09/11/2017 7:30 PM CDT Pulse 96 09/11/2017 7:30 PM CDT Temperature 36.2 C (97.1 F) 09/11/2017 7:30 PM CDT Respiratory Rate 18 09/11/2017 7:30 PM CDT Oxygen Saturation 96% 09/11/2017 7:30 PM CDT Inhaled Oxygen Concentration - - Weight 88.1 kg (194 lb 4.8 oz) 09/11/2017 6:32 AM CDT Height 182.9 cm (6') 09/08/2017 11:00 PM CDT Body Mass Index 26.35 09/11/2017 6:32 AM CDT Plan of Treatment Not on file Procedures Procedure Name Priority Date/Time Associated Comments Diagnosis ECG 12-LEAD STAT 09/07/2017 8:55 Results for this AM CDT procedure are in the results section. URINE DRUGS OF ABUSE Routine 07/26/2017 2:03 Results for this SCREEN PM [employer] procedure are in the results section. ECG 12-LEAD STAT 07/26/2017 8:33 Results for this AM [employer] procedure are in the results section. ZZESTIMATED GFR Routine 07/26/2017 6:44 Results for this AM [employer] procedure are in the results section. THYROID STIMULATING Routine 07/26/2017 6:44 Results for this HORMONE AM [employer] procedure are in the results section. LIPID PANEL Routine 07/26/2017 6:44 Results for this AM [employer] procedure are in the results section. HC COMPLETE BLD COUNT Routine 07/26/2017 6:44 Results for this W/AUTO DIFF AM [employer] procedure are in the results section. HEMOGLOBIN A1C Routine 07/26/2017 6:44 Results for this AM [employer] procedure are in the results section. COMPREHENSIVE Routine 07/26/2017 6:44 Results for this METABOLIC PANEL AM [employer] procedure are in the results section. after 02/09/2017 Results ECG 12 lead (09/07/2017 8:55 AM)Only the most recent of2 resultswithin the time period is included. Ventricular rate 87 [facility] Atrial rate 87 [facility] NV interval 122 [facility] QRSD interval 82 [facility] QT interval 366 [facility] QTC interval 440 [facility] P axis 1 47 [facility] QRS axis 1 62 [facility] T wave axis 45 [facility] EKG impression Normal sinus rhythm-Normal ECG-In automated [facility] comparison with ECG of 26-JUL-2017 08:33,-No significant change was found- Performing Organization Address [facility] Phone Number [facility] [address] [place] [address] Urine drugs of abuse screen (07/26/2017 2:03 PM) Amphetamine screen, urine Negative [facility] DEPARTMENT OF PATHOLOGY AND GENOMIC MEDICINE Barbiturate screen, urine Negative [facility]PART[facility] OF PATHOLOGY AND GENOMIC MEDICINE Benzodiazepine screen, Negative [facility] DEPARTMENT OF urine PATHOLOGY AND GENOMIC MEDICINE Cannabinoid screen, urine Negative [facility] DEPARTMENT OF PATHOLOGY AND GENOMIC MEDICINE Cocaine screen, urine Negative [facility] DEPARTMENT OF PATHOLOGY AND GENOMIC MEDICINE Methadone metabolite Negative [facility] DEPARTMENT OF (EDDP), urine PATHOLOGY AND GENOMIC MEDICINE Opiates screen, urine Negative [facility] DEPARTMENT OF PATHOLOGY AND GENOMIC MEDICINE Oxycodone screen, urine Negative [facility] DEPARTMENT OF PATHOLOGY AND GENOMIC MEDICINE Phencyclidine screen, urine Negative [facility] DEPARTMENT OF PATHOLOGY AND GENOMIC MEDICINE Tricyclic screen, urine Negative [facility] DEPARTMENT OF Comment: PATHOLOGY AND GENOMIC Drug screen minimum concentration of detectability MEDICINE [id number] ng/mL Barbiturates 200 ng/mL Tlsbqruezjuddqa935 ng/mL Rjdjmew932 ng/mL Tatrafltu701 ng/mL Cathjdi764 ng/mL Jlcoyisyt161 ng/mL Phencyclidine 25 ng/mL Rmvsgddvfnxc55 ng/mL Rxiznkujfv1500 ng/mL Negative test results indicates presumptive evidence of lack of clinically significant drug concentration in this urine specimen. Positive test results are presumptive evidence of clinically significant drug concentration in this urine specimen. Testing performed for medical purposes only. Specimen Urine Performing Organization Address [facility] Phone Number [facility] DEPARTMENT OF PATHOLOGY AND [address] [place] [address] [employer] MEDICINE Estimated GFR (07/26/2017 6:44 AM) GFR Non Af Amer >90 mL/min/1.73 m2 [facility] DEPARTMENT OF PATHOLOGY AND GENOMIC MEDICINE GFR Af Amer >90 mL/min/1.73 m2 [facility] DEPARTMENT OF Comment: PATHOLOGY AND GENOMIC Chronic kidney disease: <60 mL/min/1.73m2 MEDICINE Kidney failure: <15 mL/min/1.73m2 The estimated GFR is calculated from the IDMS-traceable Modification of Diet in Renal Disease Equation. The accuracy of the calculation is poor when the creatinine is normal. Calculated values >90 mL/min/1.73m2 are not reported. This equation has not been validated in children (<18 years), women, the elderly (>70 years), or ethnic groups other than Caucasians and Americans. Specimen Plasma specimen Performing Organization Address City/State/Zipcode Phone Number [facility] DEPARTMENT OF PATHOLOGY AND [address] [place] [phone] [employer] [facility] CBC with platelet and differential (07/26/2017 6:44 AM) WBC 8.95 4.50 - 11.00 k/uL [facility] DEPARTMENT OF PATHOLOGY AND GENOMIC MEDICINE RBC 4.66 4.40 - 6.00 m/uL [facility] DEPARTMENT OF PATHOLOGY AND GENOMIC MEDICINE HGB 14.1 14.0 - 18.0 g/dL [facility] DEPARTMENT OF PATHOLOGY AND GENOMIC MEDICINE HCT 43.6 41.0 - 51.0 % [facility] DEPARTMENT OF PATHOLOGY AND GENOMIC MEDICINE MCV 93.6 82.0 - 100.0 fL [facility] DEPARTMENT OF PATHOLOGY AND GENOMIC MEDICINE MCH 30.3 27.0 - 34.0 pg [facility] DEPARTMENT OF PATHOLOGY AND GENOMIC MEDICINE MCHC 32.3 31.0 - 37.0 g/dL [facility] DEPARTMENT OF PATHOLOGY AND GENOMIC MEDICINE RDW - SD 50.2 37.0 - 55.0 fL [facility] DEPARTMENT OF PATHOLOGY AND GENOMIC MEDICINE MPV 10.4 8.8 - 13.2 fL [facility] DEPARTMENT OF PATHOLOGY AND GENOMIC MEDICINE Platelet count 267 150 - 400 k/uL [facility] DEPARTMENT OF PATHOLOGY AND GENOMIC MEDICINE Nucleated RBC 0.00 /100 WBC [facility] DEPARTMENT OF PATHOLOGY AND GENOMIC MEDICINE Neutrophils 59.7 39.0 - 69.0 % [facility] DEPARTMENT OF PATHOLOGY AND GENOMIC MEDICINE Lymphocytes 25.5 25.0 - 45.0 % [facility] DEPARTMENT OF PATHOLOGY AND GENOMIC MEDICINE Monocytes 10.4 (H) 0.0 - 10.0 % [facility] DEPARTMENT OF PATHOLOGY AND GENOMIC MEDICINE Eosinophils 2.8 0.0 - 5.0 % [facility] DEPARTMENT OF PATHOLOGY AND GENOMIC MEDICINE Basophils 0.7 0.0 - 1.0 % [facility] DEPARTMENT OF PATHOLOGY AND GENOMIC MEDICINE Immature granulocytes 0.9Comment: 0.0 - 1.0 % [facility] DEPARTMENT OF "Immature PATHOLOGY AND GENOMIC granulocytes" MEDICINE (promyelocytes, myelocytes, metamyelocytes) Specimen Blood Performing Organization Address City/[facility] Phone Number [facility] DEPARTMENT OF PATHOLOGY AND [address] [place] [phone] [place] [address] Thyroid stimulating hormone (07/26/2017 6:44 AM) TSH 0.96 0.27 - 4.20 uIU/mL [facility] DEPARTMENT OF PATHOLOGY AND GENOMIC MEDICINE Specimen Plasma specimen Performing Organization Address City/[facility] Phone Number [facility] DEPARTMENT OF PATHOLOGY AND [address] [place] [address] Hemoglobin A1c (07/26/2017 6:44 AM) Hemoglobin A1C 5.3 4.0 - 5.6 % [facility] DEPARTMENT OF PATHOLOGY Comment: AND [facility] MEDICINE HbA1c cutoffs for diagnosing diabetes: 4.0% - 5.6%=normal 5.7% - 6.4%=increased risk for diabetes (prediabetes) >=6.5%=diabetes Goals for glycemic control (ADA 2016) < 7.0%Target for non adults with diabetes. More or less stringent targets may be appropriate for individual patients. <7.5% Target for Children and adolescents with type 1 diabetes. Specimen Blood Performing Organization Address [facility] Phone Number [facility] DEPARTMENT OF PATHOLOGY AND [address] [place] [address] Lipid panel (07/26/2017 6:44 AM) Cholesterol 193 <200 mg/dL [facility] DEPARTMENT OF PATHOLOGY AND GENOMIC MEDICINE Triglycerides 63 <150 mg/dL [facility] DEPARTMENT OF PATHOLOGY AND GENOMIC MEDICINE HDL cholesterol 66 >40 mg/dL [facility] DEPARTMENT OF PATHOLOGY AND GENOMIC MEDICINE LDL cholesterol 138 (H)Comment: Result <100 mg/dL [facility] DEPARTMENT OF obtained by direct LDL PATHOLOGY AND GENOMIC measurement MEDICINE Lipid panel interpretation SeeBelow [facility] DEPARTMENT OF Comment: PATHOLOGY AND GENOMIC Total Cholesterol (mg/dL) MEDICINE <200 Desirable 103-893Eqkwbhgilr-xocl >=240High Triglycerides (mg/dL) <150 Normal [id number]-xuty 200-499High >=500Very high HDL Cholesterol (mg/dL) <40Low (male) <40Low (female) LDL Cholesterol (mg/dL) <100 Optimal 100-129Near or above optimal 368-643Hvoqxsffcz-uukq 160-189High >=190Very high Risk Catergories that modify LDL goals. Risk CatergoriesLDL goal (mg/dL) CHD and CHD risk equivalent<100 (10-year risk >20%) Multiple (2+) risk factors <130 (10-year risk=<20%) 0-1 risk factors <160 (<10-year risk) Defining levels of lipids in metabolic syndrome Triglycerides>=150 mg/dL HDL Cholesterol Men<40 mg/dL Women<40 mg/dL Non-HDL cholesterol is a second target for therapy in persons with high triglycerides (>=200 mg/dL) Specimen Plasma specimen Performing Organization Address City/State/Zipcode Phone Number [facility] DEPARTMENT OF PATHOLOGY AND [address] [place] [address] [employer] [facility] Comprehensive metabolic panel (07/26/2017 6:44 AM) Sodium 138 135 - 148 mEq/L [facility] DEPARTMENT OF PATHOLOGY AND GENOMIC MEDICINE Potassium 3.9 3.5 - 5.0 mEq/L [facility] DEPARTMENT OF PATHOLOGY AND GENOMIC MEDICINE Chloride 100 98 - 112 mEq/L [facility] DEPARTMENT OF PATHOLOGY AND GENOMIC MEDICINE CO2 24 24 - 31 mEq/L [facility] DEPARTMENT OF PATHOLOGY AND GENOMIC MEDICINE Anion gap 14 7 - 15 mEq/L [facility] DEPARTMENT OF Comment: PATHOLOGY AND GENOMIC Starting from August , anion gap calculation MEDICINE no longer incorporates potassium. Please note the change. BUN 17 6 - 20 mg/dL [facility] DEPARTMENT OF PATHOLOGY AND GENOMIC MEDICINE Creatinine 0.9 0.7 - 1.2 mg/dL [facility] DEPARTMENT OF PATHOLOGY AND GENOMIC MEDICINE Glucose 89 65 - 99 mg/dL [facility] DEPARTMENT OF PATHOLOGY AND GENOMIC MEDICINE Calcium 9.2 8.3 - 10.2 mg/dL [facility] DEPARTMENT OF PATHOLOGY AND GENOMIC MEDICINE Protein 7.6 6.3 - 8.3 g/dL [facility] DEPARTMENT OF Comment: PATHOLOGY AND GENOMIC 4.6-7.0 g/dL MEDICINE 1 week 4.4-7.6 g/dL 7 months-1year5.1-7.3 g/dL 1-2 years5.6-7.5 g/dL >3 years6.0-8.0 g/dL 18-150 6.3-8.3 g/dL Albumin 3.9 3.5 - 5.0 g/dL [facility] DEPARTMENT OF PATHOLOGY AND GENOMIC MEDICINE A/G ratio 1.1 0.7 - 3.8 [facility] DEPARTMENT OF PATHOLOGY AND GENOMIC MEDICINE Alkaline phosphatase 75 40 - 129 U/L [facility] DEPARTMENT OF PATHOLOGY AND GENOMIC MEDICINE AST 22 10 - 50 U/L [facility] DEPARTMENT OF PATHOLOGY AND GENOMIC MEDICINE ALT 31 5 - 50 U/L [facility] DEPARTMENT OF PATHOLOGY AND GENOMIC MEDICINE Total bilirubin 0.4 0.0 - 1.2 mg/dL [facility] DEPARTMENT OF PATHOLOGY AND GENOMIC MEDICINE Specimen Plasma specimen Performing Organization Address City/State/Zipcode Phone Number [facility] DEPARTMENT OF PATHOLOGY AND [address] [place] [address] [employer] [facility] after 02/09/2017
--- OUTSIDE RECORDS SUMMARY | 2018-02-10 12:00 | XMS REPORT | Continuity of Care Document ---
:1985 Author Organization Interface Problems Problem Status Onset Classification Date Comments Source Date Reported NSTEMI Active [place] [id number] DRUG OVERDOSE Active [place] [id number] Illness, 11/05/2017 [facility] unspecified POISONING BY Active [facility] UNSP DRUG/MEDS/BIOL SUBST, ILLNESS, Active [facility] UNSPECIFIED ABDOMINAL Active [facility] AORTIC ANEURYSM, RUPTURED NON-ST Active [facility] ELEVATION (NSTEMI) MYOCARDIAL INF Medications Medication Details Route Status Patient Ordering Order Source Instructions Provider Date Klonopin 0.5 mg, 1 Inactive tab, Route: 2017 [facility] PO, Drug form: TAB, Daily, Dosing Weight 85.3, kg, Start date: 11/02/17 9:00:00 CDT, Duration: 30 day, Stop date: 12/01/17 9:00:00 CDTNotes: (Same As: KlonoPIN) Klonopin 0.5 mg, 1 No Longer tab, Route: Active 2017 [facility] PO, Drug form: TAB, BID, Dosing Weight 85.3, kg, Start date: 11/01/17 18:00:00 CDT, Duration: 30 day, Stop date: 12/01/17 17:00:00 CDTNotes: (Same As: KlonoPIN) Clonazepam 0.5 0.5 mg=1 tab, No Longer MG Oral Tablet PO, BID, # [address] [facility] [Klonopin] tab, 0 Refill(s) Sodium Chloride 250 mL, No Longer 0.9% IV Route: IVPB, Active 2017 [facility] Start date: 11/01/17 16:27:00 CDT, Duration: 30 day, Stop date: 12/01/17 16:26:00 CDT, PRN Line Flush BD Normal Saline 10 mL, Route: Inactive Flush IVP, Drug 2017 [facility] Form: INJ, PRN, PRN Line Flush, Start date: 11/01/17 16:26:00 CDT, Duration: 30 day, Stop date: 12/01/17 16:25:00 CDTNotes: (Same as: BD Posiflush) Ativan 1 mg, 0.5 mL, No Longer Route: IVP, 2017 [facility] Drug form: INJ, Q6H, Dosing Weight 85.3, kg, PRN Withdrawal, Start date: 11/01/17 16:19:00 CDT, Duration: 30 day, Stop date: 12/01/17 16:18:00 CDTNotes: (Same as: Ativan) Buspirone 10 mg, 1 tab, No Longer Route: PO, 2017 [facility] Drug form: TAB, BID, kg, Start date: 11/01/17 9:00:00 CDT, Duration: 30 day, Stop date: 11/30/17 17:00:00 CDTNotes: (Same As: BuSpar) Saline Flush 10 ml, Route: No Longer 0.9% IVP, Drug Active 2017 [facility] Form: INJ, Dosing Weight 85.3, kg, Q12H, Start date: 11/01/17 9:00:00 CDT, Duration: 30 day, Stop date: 11/30/17 21:00:00 CDTNotes: (Same as: BD Posiflush) gabapentin 300 300 mg, 1 No Longer MG Oral Capsule cap, Route: 2017 [facility] PO, Drug form: CAP, Q12H, kg, (CrCl 30 - 59 ml/min), Start date: 11/01/17 9:00:00 CDT, Duration: 30 day, Stop date: 11/30/17 21:00:00 CDTNotes: (Same as: Neurontin) sennosides, HALFWAY 8.6 mg, 1 No Longer tab, Route: Active 2017 [facility] PO, Drug Form: TAB, Dosing Weight 85.3, kg, Q12H, Start date: 11/01/17 9:00:00 CDT, Duration: 30 day, Stop date: 11/30/17 21:00:00 CDTNotes: (Same as: Senokot) Docusate 100 mg, 1 No Longer cap, Route: Active 2018 [facility] PO, Drug form: CAP, Q12H, Dosing Weight 85.3, kg, Start date: 11/01/17 9:00:00 CDT, Duration: 30 day, Stop date: 11/30/17 21:00:00 CDTNotes: (Same as: Colace) (Do Not Crush) Seroquel 100 mg, 1 No Longer tab, Route: Active 2017 [facility] PO, Drug form: TAB, BID, kg, Start date: 11/01/17 9:00:00 CDT, Duration: 30 day, Stop date: 11/30/17 17:00:00 CDTNotes: (Same as: SEROquel) Clonidine 0.1 mg, 1 Inactive Hydrochloride tab, Route: 2018 [facility] 0.1 MG Oral PO, Drug Tablet form: TAB, BID, kg, Start date: 11/01/17 9:00:00 CDT, Duration: 30 day, Stop date: 11/30/17 17:00:00 CDTNotes: (Same As: Catapres) Fluoxetine 20 mg, 1 cap, No Longer Route: PO, Active 2017 [facility] Drug form: CAP, Daily, kg, Start date: 11/01/17 9:00:00 CDT, Duration: 30 day, Stop date: 11/30/17 9:00:00 CDTNotes: (Same as: Prozac, Sarafem) Thiamine 100 mg, 1 No Longer tab, Route: Active 2017 [facility] PO, Drug form: TAB, Daily, Dosing Weight 85.3, kg, Start date: 11/01/17 9:00:00 CDT, Duration: 5 day, Stop date: 11/05/17 9:00:00 CDTNotes: (Same As: Vitamin B1) multivitamin 1 tab, Route: No Longer PO, Drug Active 2017 [facility] Form: TAB, Dosing Weight 85.3, kg, Daily, Start date: 11/01/17 9:00:00 CDT, Duration: 5 day, Stop date: 11/05/17 9:00:00 CDTNotes: (Same as:Thera) WASTE: F/P - Black; E - Municipal Trash Bin Take with food. Folic Acid 1 mg, 1 tab, Inactive Route: PO, 2017 [facility] Drug form: TAB, Daily, Dosing Weight 85.3, kg, Start date: 11/01/17 9:00:00 CDT, Duration: 5 day, Stop date: 11/05/17 9:00:00 CDTNotes: (Same as: Folvite) Sodium Chloride 1,000 mL, No Longer 0.9% IV 1,000 mL Rate: [address] [facility] ml/hr, Infuse over: 10 hr, Route: IV, Dosing Weight 85.3 kg, Total Volume: 1,000, Start date: 11/01/17 0:24:00 CDT, Duration: 30 day, Stop date: 12/01/17 0:23:00 CDT, 2.09, m2 Nicotine 14 mg, 1 No Longer patch, Route: Active 2017 [facility] TOP, Drug form: ERFILM, Daily, Dosing Weight 85.3, kg, Priority: NOW, Start date: 10/31/17 23:05:00 CDT, Duration: 30 day, Stop date: 11/30/17 9:00:00 CDTNotes: (Same as: Habitrol) "Remove old patch before application of new patch" WASTE: F/P - P Waste Black; E - P Waste Black Lorazepam 2 mg, 1 mL, No Longer Route: IVP, Active 2017 [facility] Drug form: INJ, Q2H, Dosing Weight 85.3, kg, PRN Other -See Comment, CIWA Score 8 -14, Start date: 10/31/17 23:01:00 CDT, Duration: 30 day, Stop date: 11/30/17 23:00:00 CDTNotes: (Same as: Ativan) Sodium Chloride 1,000 mL, No Longer 0.9% IV 1,000 mL Rate: [address] [facility] + M.V.I.-12 10 ml/hr, Infuse mL Daily + folic over: 10.1 acid IV 1 mg hr, Route: Daily + thiamine IV, Dosing IV 1 Weight 85.3 kg, Total Volume: 1,011.2, Start date: 10/31/17 23:01:00 CDT, Duration: 3 day, Stop date: 11/03/17 23:00:00 CDT, 2.09, m2 potassium 45 mmol, 15 No Longer 15/ MH phosphate mL, Route: Active 2018 [facility] IVPB, PRN, Dosing Weight 85.3, kg, PRN Abnormal Lab Result, Start date: 10/31/17 22:57:00 CDT, Duration: 30 day, Stop date: 11/30/17 22:56:00 CDT, FOR ICU USE ONLYNotes: (Same as: K Phosphate.) 1 mMol phoshate has 1.47 mEq potassium Infuse over 4 hours potassium 500 mg, 2 No Longer 06/15/ MH phosphate-sodium tab, Route: Active 2018 [facility] phosphate 250 PO, Drug mg-280 mg-160 mg Form: TAB, oral powder for Dosing Weight reconstitution 85.3, kg, PRN, PRN Abnormal Lab Result, FOR ICU USE ONLY, Start date: 10/31/17 22:57:00 CDT, Duration: 30 day, Stop date: 11/30/17 22:56:00 CDTNotes: (Same as: K-Phos Neutral, Phospha 250 Neutral) sodium phosphate 45 mmol, 15 No Longer /15/ MH mL, Route: Active 2018 [facility] IVPB, PRN, Dosing Weight 85.3, kg, PRN Abnormal Lab Result, Start date: 10/31/17 22:57:00 CDT, Duration: 30 day, Stop date: 11/30/17 22:56:00 CDT, FOR ICU USE ONLY Potassium 20 mEq, 15 No Longer 11/01/ MH Chloride mL, Route: Active 2018 [facility], Drug form: LIQ, PRN, Dosing Weight 85.3, kg, PRN Abnormal Lab Result, Start date: 10/31/17 22:57:00 CDT, Duration: 30 day, Stop date: 11/30/17 22:56:00 CDT, FOR ICU USE ONLYNotes: (Same as: Potassium Chloride) Calcium 500 mg, 1 No Longer 15/ MH Carbonate 500 MG tab, Route: Active 2018 [facility] Chewable Tablet PO, Drug form: CHEWTAB, PRN, Dosing Weight 85.3, kg, PRN Abnormal Lab Result, FOR ICU USE ONLY, Start date: 10/31/17 22:57:00 CDT, Duration: 30 day, Stop date: 11/30/17 22:56:00 CDTNotes: (Same As: Tums) Calcium Carbonate 500 sa=399 mg elemental calcium Dose= mg calcium carbonate ( mg elemental calcium) Calcium 1 gm, 50 mL, No Longer Gluconate Route: IVPB, 2017 [facility] Drug form: INJ, PRN, Dosing Weight 85.3, kg, PRN Abnormal Lab Result, Start date: 10/31/17 22:57:00 CDT, Duration: 30 day, Stop date: 11/30/17 22:56:00 CDT, FOR ICU USE ONLYNotes: WASTE: F/P - Sink; E - Municipal Trash Bin Magnesium Oxide 800 mg, 2 No Longer tab, Route: Active 2017 [facility] PO, Drug form: TAB, PRN, Dosing Weight 85.3, kg, PRN Abnormal Lab Result, FOR ICU USE ONLY, Start date: 10/31/17 22:57:00 CDT, Duration: 30 day, Stop date: 11/30/17 22:56:00 CDTNotes: (Same as: Mag-Ox 400) Magnesium oxide [id number] elemental magnesium Dose=____mg magnesium oxide (___mg elemental magnesium) Magnesium 2 gm, 50 mL, No Longer Sulfate Route: IVPB, 2017 [facility] Drug form: INJ, PRN, Dosing Weight 85.3, kg, PRN Abnormal Lab Result, Start date: 10/31/17 22:57:00 CDT, Duration: 30 day, Stop date: 11/30/17 22:56:00 CDT, FOR ICU USE ONLYNotes: WASTE: F/P - Sink; E - Municipal Trash Bin Saline Flush 10 ml, Route: No Longer 0.9% IVP, Drug Active 2017 [facility] Form: INJ, Dosing Weight 85.3, kg, PRN, PRN Line Flush, Start date: 10/31/17 22:57:00 CDT, Duration: 30 day, Stop date: 11/30/17 22:56:00 CDTNotes: (Same as: BD Posiflush) Albuterol 0.833 3 ml, Route: No Longer MG/ML / NEB, Drug Active 2018 [facility] Ipratropium Form: SOLN, [place] 0.167 Dosing Weight MG/ML Inhalant 85.3, kg, Solution PRN, PRN Respiratory Protocol, Start date: 10/31/17 22:57:00 CDT, Duration: 30 day, Stop date: 11/30/17 22:56:00 CDTNotes: (Same as: Duoneb) Acetaminophen 650 mg, 2 No Longer tab, Route: Active 2018 [facility] PO, Drug form: TAB, Q4H, Dosing Weight 85.3, kg, PRN For Temp > 100.4 F, Start date: 10/31/17 22:57:00 CDT, Duration: 30 day, Stop date: 11/30/17 22:56:00 CDTNotes: Do not exceed 4 gm/day. (Same as: Tylenol) Nystatin 100 1 appl, No Longer UNT/MG Topical Route: TOP, Active 2017 [facility] Powder PRN, Drug form: PWDR, PRN For Fungal Prophylaxis, Start date: 10/31/17 22:57:00 CDT, Duration: 30 day, Stop date: 11/30/17 22:56:00 CDTNotes: (Same as:Mycostatin , Nilstat) For external use only. Saline Flush 10 ml, Route: No Longer 0.9% IVP, Drug Active 2017 [facility] Form: INJ, kg, PRN, PRN Line Flush, Start date: 10/31/17 22:25:00 CDT, Duration: 30 day, Stop date: 11/30/17 22:24:00 CDTNotes: (Same as: BD Posiflush) Albuterol 0.833 3 ml, Route: No Longer MG/ML / NEB, Drug Active 2018 [facility] Ipratropium Form: SOLN, [place] 0.167 kg, PRN, PRN MG/ML Inhalant Respiratory Solution Protocol, Start date: 10/31/17 22:25:00 CDT, Duration: 30 day, Stop date: 11/30/17 22:24:00 CDTNotes: (Same as: Duoneb) Bisacodyl 10 mg, 1 No Longer supp, Route: Active 2018 [facility] [place], Drug form: SUPP, Daily, kg, PRN Other -See Comment, Start date: 10/31/17 22:25:00 CDT, Duration: 30 day, Stop date: 11/30/17 22:24:00 CDTNotes: (Same As: Dulcolax, Bisco-Lax) Nystatin 100 1 appl, No Longer UNT/MG Topical Route: TOP, Active 2017 [facility] Powder PRN, Drug form: PWDR, PRN For Fungal Prophylaxis, Start date: 10/31/17 22:25:00 CDT, Duration: 30 day, Stop date: 11/30/17 22:24:00 CDTNotes: (Same as:Mycostatin , Nilstat) For external use only. Clonidine 0.1 mg=1 tab, No Longer Hydrochloride PO, BID, [address] [facility] 0.1 MG Oral Refill(s) Tablet Fluoxetine 20 MG 20 mg=1 cap, Active Oral Capsule PO, Daily, [address] [facility] [Prozac] Refill(s) busPIRone 10 mg 10 mg=1 tab, Active oral tablet PO, BID, [address] [facility] Refill(s) quetiapine 100 100 mg=1 tab, Active MG Oral Tablet PO, BID, [address] [facility] [Seroquel] Refill(s) gabapentin 300 300 mg=1 cap, Active MG Oral Capsule PO, BID, [address] [facility] Refill(s) Allergies, Adverse Reactions, Alerts Substance Category Reaction Severity Reaction Status Date Comments Source type Reported NKDA Assertion Drug Active allergy [facility] Immunizations Immunization Date Site Status Last Comments Source Given Updated pneumococcal Right completed Jacob [facility] 23-valent 8 deltoid vaccine Results Order Name Results Value Reference Date Interpretation Comments Source Range Brain w/wo Brain w/wo Clinical Indication: - Amnesia, abnormal CT head - contrast contrast MRI /2017 - [facility] MRI Comparison: None Read by: Marco Antonio Diego MD Dictated Date/time: 01/20/18 10:17 TECHNIQUE: Multiplanar pre- and post-gadolinium contrast-enhanced MRI of the brain is performed on a 1.5 Neicy magnet. Contrast: 17 cc of gadolinium was administered. Electronically Signed by: Marco Antonio Diego MD 01/20/18 10:18 FINAL REPORT FINDINGS: BRAIN PARENCHYMA: The brain parenchyma has normal signal with normal murguia- white junction, sulci, and gyri. There is no mass effect or midline shift. There is no extra-axial fluid collection or intrapare nchymal hemorrhage. The corpus callosum appears normal. There is no diffusion weighted imaging or ADC map abnormality to suggest acute/subacute ischemia. There is no magnetic susceptibility to suggest r ecent or remote intracranial hemorrhage. There is no abnormal contrast enhancement. CEREBELLOPONTINE REGIONS AND SKULL BASE: The cerebellopontine angles appear unremarkable. The skull base, craniocervical junction, and brainstem are normal. The optic chiasm is normal. The sellar and pineal regions are unremarkable. VENTRICLES: The ventricles are normal in size and configuration. The basilar cisterns are normal. VISUALIZED VESSELS: The venous sinuses are grossly unremarkable. The expected intracranial flow voids are present. ORBITS, VISUALIZED PARANASAL SINUSES AND MASTOIDS: The visualized orbits and paranasal sinuses are unremarkable. The mastoid air cells are clear. IMPRESSION: Unremarkable pre- and postcontrast MRI of the brain without stroke, hemorrhage or mass. SL: [place]- CHEM PANEL A/G Ratio 1.0 0.7 - 1.6 11/02 [facility] CHEM PANEL B/C Ratio 9 6 - 25 11/02 [facility] CHEM PANEL Globulin 3.2 g/dL 2.7 - 4.2 11/02 [facility] CHEM PANEL AGAP 11.7 meq/L 10.0 - 11/[address] [facility] CHEM PANEL eGFR 120 11/02 Result Comment: The eGFR is calculated using the CKD-EPI formula. In most young, healthy individuals the eGFR will be >90 mL/ min/1.73m2. The eGFR declines with age. An eGFR of 60-89 may be normal in MH mL/min/1.7 /2018 some populations, particularly the elderly, for whom the CKD-EPI formula has not been extensively validated. Use of the eGFR is not recommended in the following populations: [address] Individuals with unstable creatinine concentrations, including patients and those with serious co-morbid conditions. Patients with extremes in muscle mass or diet. The data above are obtained from the National Kidney Disease Education Program (NKDEP) which additionally recommends that when the eGFR is used in patients with extremes of body mass index for purposes of drug dosing, the eGFR should be multiplied by the estimated BMI. CHEM PANEL Alk Phos 80 unit/L 39 - 136 11/02 [facility] CHEM PANEL AST 11 unit/L 0 - 37 11/02 [facility] CHEM PANEL ALT 25 unit/L 0 - 65 11/02 [facility] CHEM PANEL Total 6.3 g/dL 6.4 - 8.4 11/02 [facility] CHEM PANEL Albumin Lvl 3.1 g/dL 3.5 - 5.0 11/02 [facility] CHEM PANEL Calcium Lvl 8.6 mg/dL 8.5 - 10.5 11/02 [facility] CHEM PANEL CO2 27 meq/L 24 - 32 11/02 [facility] CHEM PANEL Bili Total 0.1 mg/dL 0.2 - 1.3 11/02 [facility] CHEM PANEL Chloride Lvl 108 meq/L 95 - 109 11/02 [facility] CHEM PANEL Potassium 3.7 meq/L 3.5 - 5.1 11/02 [facility] Lvl [facility] CHEM PANEL Sodium Lvl 143 meq/L 135 - 145 11/02 [facility] CHEM PANEL Creatinine 0.80 mg/dL 0.50 - 11/02 Lvl 1.40 [facility] CHEM PANEL Glucose Lvl 96 mg/dL 70 - 99 11/02 [facility] CHEM PANEL BUN 7 mg/dL 7 - 22 11/02 [facility] HEMATOLOGY Segs-Bands # 4.2 K/CMM 1.5 - 8.1 11/02 [facility] HEMATOLOGY Basophils 0.4 % 0.0 - 1.0 11/02 [facility] HEMATOLOGY Lymphocytes 2.5 K/CMM 1.0 - 5.5 11/02 MH # /2018 [facility] HEMATOLOGY Eosinophils 0.2 K/CMM 0.0 - 0.5 11/02 # /2017 [facility] HEMATOLOGY Monocytes # 0.8 K/CMM 0.0 - 0.8 11/02 [facility] HEMATOLOGY Eosinophils 2.5 % 0.0 - 4.0 11/02 [facility] HEMATOLOGY Monocytes 11.0 % 2.0 - 12.0 11/02 [facility] HEMATOLOGY Lymphocytes 32.1 % 20.0 - 06/16 MH 40.0 /2017 [facility] HEMATOLOGY Segs 54.0 % 45.0 - 11/02 MH 75.0 /2017 [facility] HEMATOLOGY MCHC 32.4 g/dL 32.0 - 11/02 MH 36.0 /2017 [facility] HEMATOLOGY MCV 92.5 fL 80.0 - 11/02 MH 94.0 /2017 [facility] HEMATOLOGY MCH 30.0 pg 27.0 - 11/02 MH 31.0 /2017 [facility] HEMATOLOGY RDW 14.4 % 11.5 - 11/02 MH 14.5 /2017 [facility] HEMATOLOGY MPV 8.9 fL 7.4 - 10.4 11/02 [facility] HEMATOLOGY Platelet 273 K/CMM 133 - 450 11/02 [facility] HEMATOLOGY WBC 7.7 K/CMM 3.7 - 10.4 11/02 [facility] HEMATOLOGY Hct 40.7 % 42.0 - 11/[address] [facility] HEMATOLOGY RBC 4.40 M/CMM 4.70 - 11/[address] [facility] HEMATOLOGY Hgb 13.2 g/dL 14.0 - 11/[address] [facility] CARDIAC Troponin-I null 0.00 - 11/[address] [facility] CARDIAC Troponin-I null 0.00 - 11/01 [place]YM[place] 0.40 /2017 [facility] ELECTROLYT Potassium 4.1 meq/L 3.5 - 5.1 11/01 ES Lvl /2017 [facility] BACTERIAL Source Strep Urine 11/01 - SEROLOGY /2017 [facility] *NA* (10/31/17 11:23 PM) BACTERIAL Strep Negative Negative 11/01 - SEROLOGY pneumoniae [facility] Ag (10/31/17 11:23 PM) URINE AND UA Bili Negative Negative 11/[address] [facility] *NA* (10/31/17 11:23 PM) URINE AND UA Ketones Negative Negative 11/01 [facility]OOL mg/dL mg/dL /2017 [facility] URINE AND UA Glucose Negative Negative 11/01 [facility]OOL mg/dL mg/dL [facility] URINE AND UA Protein Negative Negative 11/01 [facility]OL mg/dL mg/dL /2017 [facility] URINE AND UA Color Ltyellow 11/[address] [facility] URINE AND UA pH 6.0 5.0 - 8.0 11/[address] [facility] URINE AND UA Spec Grav 1.009 <=1.030 11/[address] [facility] URINE AND UA Turbidity Clear Clear 11/[address] [facility] (10/31/17 11:23 PM) URINE AND UA null 0.1 - 1.0 11/[address] [facility] URINE AND UA Blood Negative Negative 11/[address] [facility] (10/31/17 11:23 PM) URINE AND UA Sq Epi None Seen 11/[address] [facility] URINE AND UA RBC 1 /HPF 0 - 2 11/[address] [facility] URINE AND UA Leuk Est Negative Negative 11/[address] [facility] (10/31/17 11:23 PM) URINE AND UA Nitrite Negative Negative 11/[address] [facility] (10/31/17 11:23 PM) CHEM PANEL Procalcitoni null 0.00 - 11/[address] [facility] CARDIAC BNP 37 pg/mL <=100 11/01 ENZYMES pg/mL [facility] CARDIAC Troponin-I null 0.00 - 11/[address] [facility] CHEM PANEL eGFR 127 11/01 Result Comment: The eGFR is calculated using the CKD-EPI formula. In most young, healthy individuals the eGFR will be >90 mL/ min/1.73m2. The eGFR declines with age. An eGFR of 60-89 may be normal in mL/min/1.7 some populations, particularly the elderly, for whom the CKD-EPI formula has not been extensively validated. Use of the eGFR is not recommended in the following populations: [facility] 3m2 Individuals with unstable creatinine concentrations, including patients and those with serious co-morbid conditions. Patients with extremes in muscle mass or diet. The data above are obtained from the National Kidney Disease Education Program (NKDEP) which additionally recommends that when the eGFR is used in patients with extremes of body mass index for purposes of drug dosing, the eGFR should be multiplied by the estimated BMI. CHEM PANEL Alk Phos 83 unit/L 39 - 136 11/01 [facility] CHEM PANEL Bili Total 0.2 mg/dL 0.2 - 1.3 11/01 [facility] CHEM PANEL ALT 28 unit/L 0 - 65 11/01 [facility] CHEM PANEL AST 17 unit/L 0 - 37 11/01 [facility] CHEM PANEL Glucose Lvl 88 mg/dL 70 - 99 11/01 [facility] CHEM PANEL Calcium Lvl 7.9 mg/dL 8.5 - 10.5 11/01 [facility] CHEM PANEL Total 6.0 g/dL 6.4 - 8.4 11/01 [facility] CHEM PANEL Albumin Lvl 3.0 g/dL 3.5 - 5.0 11/01 [facility] CHEM PANEL BUN 5 mg/dL 7 - 22 11/01 [facility] CHEM PANEL Creatinine 0.70 mg/dL 0.50 - 11/01 MH Lvl 1.40 [facility] CHEM PANEL Sodium Lvl 146 meq/L 135 - 145 11/01 [facility] CHEM PANEL Chloride Lvl 115 meq/L 95 - 109 11/01 [facility] CHEM PANEL CO2 24 meq/L 24 - 32 11/01 [facility] CHEM PANEL Potassium 3.8 meq/L 3.5 - 5.1 11/01 [facility] CHEM PANEL Globulin 3.0 g/dL 2.7 - 4.2 11/01 [facility] CHEM PANEL A/G Ratio 1.0 0.7 - 1.6 11/01 [facility] CHEM PANEL AGAP 10.8 meq/L 10.0 - 11/[address] [facility] CHEM PANEL B/C Ratio 7 6 - 25 11/01 [facility] CHEM PANEL Magnesium 2.2 mg/dL 1.8 - 2.4 11/01 [facility] CHEM PANEL Phosphorus 2.8 mg/dL 2.5 - 4.5 11/01 [facility] CHEM PANEL Lactic Acid 0.8 mMol/L 0.5 - 2.2 11/01 [facility] DRUG U Opiate Scr Negative Negative 11/01 [facility] *NA* (10/31/17 11:16 PM) DRUG U Phencyc Negative Negative 11/[address] [facility] *NA* (10/31/17 11:16 PM) DRUG UDS Note See Note 11/01 [facility] (10/31/17 11:16 PM) DRUG U Cannab Scr Negative Negative 11/01 [facility] *NA* (10/31/17 11:16 PM) DRUG U Cocaine Negative Negative 11/[address] [facility] *NA* (10/31/17 11:16 PM) DRUG U Benzodia Negative Negative 11/01 SCREEN Scr /2017 [facility] *NA* (10/31/17 11:16 PM) DRUG U Sharee Scr Negative Negative 11/01 SCREEN /2017 [facility] *NA* (10/31/17 11:16 PM) DRUG U Amph Scr Positive Negative 11/01 SCREEN /2017 [facility] *ABN* (10/31/17 11:16 PM) HEMATOLOGY INR 1.05 0.85 - 11/[address] [facility] HEMATOLOGY PT 13.7 s 12.0 - 11/[address] [facility] HEMATOLOGY PTT 35.1 s 22.9 - 11/01 MH 35.8 /2017 [facility] HEMATOLOGY Platelet 230 K/CMM 133 - 450 11/01 [facility] HEMATOLOGY MPV 8.6 fL 7.4 - 10.4 11/01 [facility] HEMATOLOGY RDW 14.1 % 11.5 - 11/[address] [facility] HEMATOLOGY RBC 4.45 M/CMM 4.70 - 11/[address] [facility] HEMATOLOGY Hgb 13.8 g/dL 14.0 - 11/[address] [facility] HEMATOLOGY WBC 10.5 K/CMM 3.7 - 10.4 11/01 [facility] HEMATOLOGY MCHC 34.0 g/dL 32.0 - 11/[address] [facility] HEMATOLOGY MCV 90.9 fL 80.0 - 11/[address] [facility] HEMATOLOGY Hct 40.5 % 42.0 - 11/01 54.0 /2017 [facility] HEMATOLOGY MCH 30.9 pg 27.0 - 11/[address] [facility] HEMATOLOGY Eosinophils 0.2 K/CMM 0.0 - 0.5 11/01 MH # /2017 [facility] HEMATOLOGY Basophils # 0.0 K/CMM 0.0 - 0.2 11/01 [facility] HEMATOLOGY Segs 71.9 % 45.0 - 11/[address] [facility] HEMATOLOGY Segs-Bands # 7.6 K/CMM 1.5 - 8.1 11/01 [facility] HEMATOLOGY Lymphocytes 1.9 K/CMM 1.0 - 5.5 11/01 # /2017 [facility] HEMATOLOGY Basophils 0.2 % 0.0 - 1.0 11/01 [facility] HEMATOLOGY Lymphocytes 18.0 % 20.0 - 06 MH 40.0 /2017 [facility] HEMATOLOGY Monocytes # 0.8 K/CMM 0.0 - 0.8 11/01 [facility] HEMATOLOGY Monocytes 8.1 % 2.0 - 12.0 11/01 [facility] HEMATOLOGY Eosinophils 1.8 % 0.0 - 4.0 11/01 [facility] BACTERIAL MRSA by PCR Negative 11/01 - [facility] (10/31/17 11:12 PM) PARATHYROI Ca Norm WB 1.07 1.05 - 11/01 D PROFILE mMol/L 06.13 [facility] PARATHYROI Ca Ion WB 1.10 1.05 - 11/01 D PROFILE mMol/L 06.13 [facility] Chest Chest 1view EXAM: XR CHEST 1 VIEW 10/31 1view DX - [facility] DATE: 10/31/2017 10:25 PM CDT Read by: Boston Cuadra MD Dictated Date/time: 10/31/17 23:00 Electronically Signed by: Boston Cuadra MD 10/31/17 23:01 FINAL REPORT INDICATION: Shortness of breath. COMPARISON: None Available. TECHNIQUE: Frontal radiograph of the chest was obtained. FINDINGS: Few scattered airspace opacities are suspected, most pronounced within the right lung base. The cardiomediastinal silhouette is within normal limits. The costophrenic recesses are sharp and without effusion. No acute osseous abnormality is noted. IMPRESSION: Few scattered airspace opacities, most pronounced within the right lung base. Findings may represent developing pneumonia or atelectasis. SL: [id number] Vital Signs Vital Sign Value Date Comments Source Systolic (mm Hg) 117 11/02/2017 [facility] Diastolic (mm Hg) 75 11/02/2017 [facility] Respitory Rate 18 11/02/2017 [facility] Heart Rate 71 11/02/2017 [facility] Temperature Oral (F) 97.6 F 11/02/2017 [facility] Respitory Rate 18 11/02/2017 [facility] Systolic (mm Hg) 117 11/02/2017 [facility] Diastolic (mm Hg) 75 11/02/2017 [facility] Temperature Oral (F) 97.6 F 11/02/2017 [facility] Heart Rate 71 11/02/2017 [facility] Temperature Oral (F) 97.8 F 11/02/2017 [facility] Respitory Rate 18 11/02/2017 [facility] Systolic (mm Hg) 113 11/02/2017 [facility] Diastolic (mm Hg) 65 11/02/2017 [facility] Heart Rate 84 11/02/2017 [facility] Height 182.88 cm 11/01/2017 [facility] BMI Calculated 25.5 11/01/2017 [facility] Weight 85.3 11/01/2017 [facility] Weight 85.3 11/01/2017 [facility] BMI Calculated 25.5 11/01/2017 [facility] Weight 85.3 11/01/2017 [facility] Height 182.88 cm 11/01/2017 [facility] Encounters Location Location Encounter Encounter Reason Attending ADM DC Status Source Details Type Number For Provider Date Date [facility] [id number] [place] 11/01 11/02 Brandt Barnett /2017 [facility] Procedures Procedure Code Date Perfomer Comments Source
--- OUTSIDE RECORDS SUMMARY | 2018-02-10 12:01 | XMS REPORT ---
:1985 [facility] [address] [place] [address] [address] [place] [address] Care Team Providers Name Role Phone UNKNOWN, REFFERING Primary Care Provider Unavailable DONNY STRICKLAND M.D. Unavailable Unavailable Problems This patient has no known problems. Allergies, Adverse Reactions, Alerts This patient has no known allergies or adverse reactions. Medications This patient has no known medications. Encounters Start End Encounter Admission Attending Care Care Encounter Date/Time Date/Time Type Type Clinicians Facility Department ID 2017-09-12 2017-09-12 [id number]:06:00 20:06:00 Mary Ann HINES Results Test Description Test Time Test Comments Text Results Atomic Results Result Comments RPR, Qual 2017-09-14 03:23:00 Test Item Value Reference Range Comments RPR (test code=RPR) Non-Reactive Non-Reactive Thyroid Stimulating Hormone (TSH)2017-09-13 22:13:00 Test Item Value Reference Range Comments TSH (test code=TSH) 1.26 mIU/mL 0.270-4.200 Lipid [id number] 22:13:00 Test Item Value Reference Range Comments Cholesterol (test 183 mg/dL 0-200 code=CHOL) Triglycerides (test 55 mg/dL 9-200 code=TRIG) HDL (test code=HDL) 73 mg/dL 40-60 Chol/HDL (test 2.5 Ratio 0.0-5.0 code=CHOLPHDL) LDL, Calculated (test 99 0-130 (NOTE)RISK OF HEART code=LDLC) DISEASEPublished by Filipino Heart AssociationAnalyte Optimal Boderline Increased RiskCHOL <200 200-239 >240TRIG <150 150-199 >200HDL Male: >60 <40HDL Female: >60 <50LDL <100 130-159 >160LDL NEAR OPTIMAL IS 100-129 VLDL (test code=VLDL) 11 mg/dL 5-40 LDL/HDL (test code=LDLPHDL) 1 CBC with [id number] 22:58:00 Test Item Value Reference Range Comments WBC (test code=WBC) 12.6 K/cumm 4.4-10.5 RBC (test code=RBC) 4.87 M/cumm 4.10-5.70 Hemoglobin (test code=HGB) 14.9 gm/dL 13.4-17.4 Hematocrit (test code=HCT) 44.5 % 38.7-52.0 MCV (test code=MCV) 91.3 fL 80-100 MCH (test code=MCH) 30.6 pg 27.0-32.5 MCHC (test code=MCHC) 33.5 g/dL 32.0-37.5 RDW (test code=RDW) 13.1 % 11.5-14.5 Platelet Count (test code=PLTCT) 238 K/cumm 140-440 MPV (test code=MPV) 7.1 fL Diff Method (test code=DIFFM) Auto Neutrophil (test code=NEUT) 75.3 % 36-70 Lymphocyte (test code=LYMPH) 15.0 % 12-44 Monocyte (test code=MONO) 8.2 % 0-11 Eosinophil (test code=EOS) 1.0 % 0-7 Basophil (test code=BASO) 0.4 % 0-2 Neutro Abs (test code=ANEUT) 9.5 K/cumm 1.6-7.4 Lymph Abs (test code=ALYMPH) 1.9 K/cumm 0.5-4.6 [place] Abs (test code=AMONO) 1.0 K/cumm 0.0-1.2 Eos Abs (test code=AEOS) 0.13 K/cumm 0.00-0.74 Baso Abs (test code=ABASO) 0.1 K/cumm 0.00-0.21 Prothrombin [id number] 22:55:00 Test Item Value Reference Range Comments PT (test code=PT) 10.90 seconds 9.78-13.35 INR (test code=INR) 0.96 Ratio 0.6-1.2 Urinalysis [id number] 22:50:00 Test Item Value Reference Range Comments Color (test code=COLOR) Yellow Yellow,Straw,Pl yellow Clarity (test code=CLAR) Clear Clear Specific [place] (test code=SPGR) 1.024 1.001-1.035 pH (test code=PH) 7.0 5.0-9.0 Ketone (test code=KET) Negative mg/dL Negative Glucose (test code=GLUCUR) Negative mg/dL Negative Protein (test code=PROT) Negative mg/dL Negative Bilirubin (test code=BILI) Negative mg/dL Negative Occult Blood (test code=UDOB) Negative Negative Urobilinogen (test code=UROB) 0.2 mg/dL 0.2-1.0 Nitrite (test code=NIT) Negative Negative Leuk Esterase (test code=LEUK) Negative Negative Micros Exam (test code=MEXAM) Not indicated [id number] 22:42:00 Test Item Value Reference Range Comments Amphetamine (test code=AMPH) Negative Negative For diagnostic purposes only, positive results should always be assessedin conjunctionwith the patient's medical history,clinical examination and otherfindings.To fulfill legal requirements, a more specific alternate chemical methodmust be used inorder to obtain a Confirmed analytical result. GC/MS is the preferred confirmatory method. Barbiturates (test code=MAK) Negative Negative Benzodiazepine (test Negative Negative code=FLOYD) Cocaine (test code=COCA) POSITIVE Negative Methadone (test code=MTHD) Negative Negative Opiates (test code=OPIA) Negative Negative PCP (test code=PCP) Negative Negative Propoxyphene (test Negative Negative code=PROPOX) THC (test code=THC) Negative Negative Alcohol, Urine (test <0.01 g/dL 0.00-0.01 code=ETOHU) POC Glucose, [id number] 22:40:00 Test Item Value Reference Range Comments POC Glucose (test 98 mg/dL 70-115 If you consider your patient code=POCGLUC) critically ill, the [place] Accu-Chek InformII metershould not be used for Glucose determinations.Draw a venous Glucose and send to the Main Lab for Analysis. Comprehensive Metabolic [id number] 22:30:00 Test Item Value Reference Range Comments Sodium (test code=NA) 141 mmol/L 135-145 Potassium (test code=K) 4.2 mmol/L 3.5-5.1 Chloride (test code=CL) 99 mmol/L 98-105 Carbon Dioxide (test 25 mmol/L 22-29 code=CO2) Glucose (test code=GLU) 98 mg/dL 70-115 Blood Urea Nitrogen 16 mg/dL 6-20 (test code=BUN) Creatinine (test 0.8 mg/dL 0.7-1.2 code=CREAT) Calcium (test code=CA) 9.7 mg/dL 8.3-10.5 Prot Total (test 7.8 g/dL 6.4-8.3 code=TP) Albumin (test code=ALB) 5.3 g/dL 3.5-5.2 A/G Ratio (test 2.1 Ratio code=AGRATIO) Globulin (test 2.5 2.9-3.1 code=GLOB) Bili Total (test 0.2 mg/dL 0.1-0.9 code=TBIL) AST (test code=AST) 33 U/L 1-40 ALT (test code=ALT) 29 U/L 1-41 BUN/Creatinine Ratio 20.0 (test code=BCRATIO) Anion Gap (test 17 mmol/L 7-16 code=AGAP) Estimated GFR (test >60 mL/min/1.73m2 eGFR (estimated Glomerular code=GFR) Filtration Rate) is an estimated value,calculated from the patient's serum creatinine using the MDRD equation.It is NOT the patient's actual GFR. The eGFR provides a more clinicallyuseful measure of kidney disease than serum creatinine alone.This calculation takes sex and race into account, if the informationis provided. If the race is not provided, and the patient isAfrican-Filipino, multiply by 1.212. If sex is not provided, and thepatient is female, multiply by 0.742. Results for patients <18 years ofage have not been validated by the MDRD study and should be interpretedwith caution.eGFR Result Interpretation:eGFR > or=60 is in the Normal RangeeGFR < 60 may mean kidney diseaseeGFR < 15 may mean kidney failureRanges recommended by the National Kidney Foundation,http://nkdep.nih .gov [id number] 22:30:00 Test Item Value Reference Range Comments Acetaminophen (test code=ACET) <15.0 ug/mL 15.0-30.0 [id number] 22:30:00 Test Item Value Reference Range Comments Salicylate (test code=SALI) <0.3 mg/dL 0.3-10.0 Change in unit of measurement for Salicylate ( from ug/mL to mg/dL ) Glycosylated [id number] 08:00:00 Test Item Value Reference Range Comments HBA1c (test code=HBA1C) 5.6 % 4.8-5.9 POC Glucose, [id number] 19:37:00 Test Item Value Reference Range Comments POC Glucose (test 108 mg/dL 70-115 If you consider your patient code=POCGLUC) critically ill, the [place] Accu-Chek InformII metershould not be used for Glucose determinations.Draw a venous Glucose and send to the Main Lab for Analysis. POC Glucose, [id number] 16:23:00 Test Item Value Reference Range Comments POC Glucose (test 97 mg/dL 70-115 If you consider your patient code=POCGLUC) critically ill, the [place] Accu-Chek InformII metershould not be used for Glucose determinations.Draw a venous Glucose and send to the Main Lab for Analysis. POC Glucose, [id number] 11:25:00 Test Item Value Reference Range Comments POC Glucose (test 105 mg/dL 70-115 If you consider your patient code=POCGLUC) critically ill, the [place] Accu-Chek InformII metershould not be used for Glucose determinations.Draw a venous Glucose and send to the Main Lab for Analysis. POC Glucose, [id number] 05:29:00 Test Item Value Reference Range Comments POC Glucose (test 384 mg/dL 70-115 Notify RN or MDIf you consider code=POCGLUC) your patient critically ill, the [place] Accu-Chek InformII metershould not be used for Glucose determinations.Draw a venous Glucose and send to the Main Lab for Analysis. RPR, [id number] 12:10:00 Test Item Value Reference Range Comments RPR (test code=RPR) Non-Reactive Non-Reactive Thyroid Stimulating Hormone (TSH)2017-06-26 07:36:00 Test Item Value Reference Range Comments TSH (test code=TSH) 2.08 mIU/mL 0.270-4.200 Lipid [id number] 07:27:00 Test Item Value Reference Range Comments Cholesterol (test 179 mg/dL 0-200 code=CHOL) Triglycerides (test 150 mg/dL 9-200 code=TRIG) HDL (test code=HDL) 61 mg/dL 40-60 Chol/HDL (test 2.9 Ratio 0.0-5.0 code=CHOLPHDL) LDL, Calculated (test 88 0-130 (NOTE)RISK OF HEART code=LDLC) DISEASEPublished by Filipino Heart AssociationAnalyte Optimal Boderline Increased RiskCHOL <200 200-239 >240TRIG <150 150-199 >200HDL Male: >60 <40HDL Female: >60 <50LDL <100 130-159 >160LDL NEAR OPTIMAL IS 100-129 VLDL (test code=VLDL) 30 mg/dL 5-40 LDL/HDL (test code=LDLPHDL) 1 Alcohol/Ethanol, [id number] 02:59:00 Test Item Value Reference Range Comments Alcohol, Ethyl (test 0.22 g/dL 0.00-0.01 Intoxicated 0.080 g/dL or code=ETOH) more Comprehensive Metabolic [id number] 02:59:00 Test Item Value Reference Range Comments Sodium (test code=NA) 145 mmol/L 135-145 Potassium (test code=K) 4.4 mmol/L 3.5-5.1 Chloride (test code=CL) 108 mmol/L 98-105 Carbon Dioxide (test 26 mmol/L 22-29 code=CO2) Glucose (test code=GLU) 91 mg/dL 70-115 Blood Urea Nitrogen 10 mg/dL 6-20 (test code=BUN) Creatinine (test 0.7 mg/dL 0.7-1.2 code=CREAT) Calcium (test code=CA) 9.4 mg/dL 8.3-10.5 Prot Total (test 7.6 g/dL 6.4-8.3 code=TP) Albumin (test code=ALB) 4.8 g/dL 3.5-5.2 A/G Ratio (test 1.7 Ratio code=AGRATIO) Globulin (test 2.8 2.9-3.1 code=GLOB) Bili Total (test <0.1 mg/dL 0.1-0.9 code=TBIL) Alk Phos (test 88 U/L 40-129 code=APHOS) AST (test code=AST) 11 U/L 1-40 ALT (test code=ALT) 14 U/L 1-41 BUN/Creatinine Ratio 14.3 (test code=BCRATIO) Anion Gap (test 11 mmol/L 7-16 code=AGAP) Estimated GFR (test >60 mL/min/1.73m2 eGFR (estimated Glomerular code=GFR) Filtration Rate) is an estimated value,calculated from the patient's serum creatinine using the MDRD equation.It is NOT the patient's actual GFR. The eGFR provides a more clinicallyuseful measure of kidney disease than serum creatinine alone.This calculation takes sex and race into account, if the informationis provided. If the race is not provided, and the patient isAfrican-Filipino, multiply by 1.212. If sex is not provided, and thepatient is female, multiply by 0.742. Results for patients <18 years ofage have not been validated by the MDRD study and should be interpretedwith caution.eGFR Result Interpretation:eGFR > or=60 is in the Normal RangeeGFR < 60 may mean kidney diseaseeGFR < 15 may mean kidney failureRanges recommended by the National Kidney Foundation,http://nkdep.nih .gov [id number] 02:46:00 Test Item Value Reference Range Comments Amphetamine (test code=AMPH) Negative Negative For diagnostic purposes only, positive results should always be assessedin conjunctionwith the patient's medical history,clinical examination and otherfindings.To fulfill legal requirements, a more specific alternate chemical methodmust be used inorder to obtain a Confirmed analytical result. GC/MS is the preferred confirmatory method. Barbiturates (test code=MAK) Negative Negative Benzodiazepine (test Negative Negative code=FLOYD) Cocaine (test code=COCA) Negative Negative Opiates (test code=OPIA) Negative Negative PCP (test code=PCP) Negative Negative THC (test code=THC) Negative Negative Urinalysis [id number] 02:31:00 Test Item Value Reference Range Comments Color (test code=COLOR) Straw Yellow,Straw,Pl yellow Clarity (test code=CLAR) Clear Clear Specific [place] (test code=SPGR) 1.005 1.001-1.035 pH (test code=PH) 5.0 5.0-9.0 Ketone (test code=KET) Negative mg/dL Negative Glucose (test code=GLUCUR) Negative mg/dL Negative Protein (test code=PROT) Negative mg/dL Negative Bilirubin (test code=BILI) Negative mg/dL Negative Occult Blood (test code=UDOB) Negative Negative Urobilinogen (test code=UROB) 0.2 mg/dL 0.2-1.0 Nitrite (test code=NIT) Negative Negative Leuk Esterase (test code=LEUK) Negative Negative Micros Exam (test code=MEXAM) Not indicated CBC with [id number] 02:31:00 Test Item Value Reference Range Comments WBC (test code=WBC) 11.7 K/cumm 4.4-10.5 RBC (test code=RBC) 5.10 M/cumm 4.10-5.70 Hemoglobin (test code=HGB) 15.5 gm/dL 13.4-17.4 Hematocrit (test code=HCT) 47.9 % 38.7-52.0 MCV (test code=MCV) 93.9 fL 80-100 MCH (test code=MCH) 30.3 pg 27.0-32.5 MCHC (test code=MCHC) 32.3 g/dL 32.0-37.5 RDW (test code=RDW) 13.0 % 11.5-14.5 Platelet Count (test code=PLTCT) 314 K/cumm 140-440 MPV (test code=MPV) 7.2 fL Diff Method (test code=DIFFM) Auto Neutrophil (test code=NEUT) 66.0 % 36-70 Lymphocyte (test code=LYMPH) 25.3 % 12-44 Monocyte (test code=MONO) 5.6 % 0-11 Eosinophil (test code=EOS) 2.4 % 0-7 Basophil (test code=BASO) 0.7 % 0-2 Neutro Abs (test code=ANEUT) 7.7 K/cumm 1.6-7.4 Lymph Abs (test code=ALYMPH) 3.0 K/cumm 0.5-4.6 [place] Abs (test code=AMONO) 0.7 K/cumm 0.0-1.2 Eos Abs (test code=AEOS) 0.28 K/cumm 0.00-0.74 Baso Abs (test code=ABASO) 0.1 K/cumm 0.00-0.21
--- OUTSIDE RECORDS SUMMARY | 2018-02-10 12:01 | XMS REPORT | Summary of Care ---
:1985 Author Organization [facility] Address [facility] [place], [place] [address]- Encounter [facility]) [id number] Date(s): 10/31/17 - 11/02/[address] [address]- Encounter Diagnosis Illness, unspecified (Final) - Discharge Disposition: Home or Self Care Attending Physician: Mich Barnett MD Admitting Physician: Mich Barnett MD Referring Physician: Kenyon Foster MD Vital Signs Most recent to oldest 1 2 3 [Reference Range]: Height 182.88 cm 182.88 cm (11/01/17 4:26 AM) (10/31/17 10:56 PM) Current Weight 85.3 kg (11/01/17 5:21 AM) Temperature Oral [96.4-99.1 97.6 DegF 97.6 DegF 97.8 DegF DegF] (11/02/17 8:39 AM) (11/02/17 8:00 AM) (11/02/17 4:00 AM) Blood Pressure [90-140/60-90 117/75 mmHg 117/75 mmHg 113/65 mmHg mmHg] (11/02/17 8:39 AM) (11/02/17 8:00 AM) (11/02/17 4:00 AM) Respiratory Rate [14-20 18 BRMIN 18 BRMIN 18 BRMIN BRMIN] (11/02/17 8:39 AM) (11/02/17 8:00 AM) (11/02/17 4:00 AM) Peripheral Pulse Rate [60-100 71 bpm 71 bpm 84 bpm bpm] (11/02/17 8:39 AM) (11/02/17 8:00 AM) (11/02/17 4:00 AM) Weight 85.3 kg 85.3 kg 85.3 kg (11/01/17 4:26 AM) (11/01/17 2:36 AM) (10/31/17 10:56 PM) Body Mass Index 25.5 m2 25.5 m2 (11/01/17 4:26 AM) (10/31/17 10:56 PM) Problem List No data available for this section Allergies, Adverse Reactions, Alerts Substance Reaction Severity Status NKDA Active Medications acetaminophen 650 mg, 2 tab, Route: PO, Drug form: TAB, Q4H, Dosing Weight 85.3, kg, PRN For Temp > 100.4 F, Start date: 10/31/17 22:57:00 CDT, Duration: 30 day, Stop date: 11/30/17 22:56:00 CDT Notes: Do not exceed 4 gm/day. (Same as: Tylenol) Start Date: 10/31/17 Stop Date: 11/02/17 Status: Discontinuedalbuterol-ipratropium 2.5-0.5 mg inhalation solution 3 ml, Route: NEB, Drug Form: SOLN, Dosing Weight 85.3, kg, PRN, PRN Respiratory Protocol, Start date: 10/31/17 22:57:00 CDT, Duration: 30 day, Stop date: 22:56:00 CDT Notes: (Same as: Alejandro) Start Date: 10/31/17 Stop Date: 11/02/17 Status: Discontinuedalbuterol-ipratropium 2.5-0.5 mg inhalation solution 3 ml, Route: NEB, Drug Form: SOLN, kg, PRN, PRN Respiratory Protocol, Start date : 10/31/17 22:25:00 CDT, Duration: 30 day, Stop date: 11/30/17 22:24:00 CDT Notes: (Same as: Duoneb) Start Date: 10/31/17 Stop Date: 11/01/17 Status: DiscontinuedAtivan 1 mg, 0.5 mL, Route: IVP, Drug form: INJ, Q6H, Dosing Weight 85.3, kg, PRN Withdrawal, Start date: 11/01/17 16:19:00 CDT, Duration: 30 day, Stop date: 16:18:00 CDT Notes: (Same as: Ativan) Start Date: 11/01/17 Stop Date: 11/02/17 Status: DiscontinuedBD Normal Saline Flush 10 mL, Route: IVP, Drug Form: INJ, PRN, PRN Line Flush, Start date: 11/01/17 16: 26:00 CDT, Duration:30 day, Stop date: 12/01/17 16:25:00 CDT Notes: (Same as: BD Posiflush) Start Date: 11/01/17 Stop Date: 11/01/17 Status: Discontinuedbisacodyl 10 mg, 1 supp, Route: RI, Drug form: SUPP, Daily, kg, PRN Other -See Comment, Start date: 10/31/17 22:25:00 CDT, Duration: 30 day, Stop date: 11/30/17 22:24: 00 CDT Notes: (Same As: Dulcolax, Bisco-Lax) Start Date: 10/31/17 Stop Date: 11/02/17 Status: DiscontinuedbusPIRone 10 mg, 1 tab, Route: PO, Drug form: TAB, BID, kg, Start date: 11/01/17 9:00:00 CDT, Duration: 30 day, Stop date: 11/30/17 17:00:00 CDT Notes: (Same As: BuSpar) Start Date: 11/01/17 Stop Date: 11/02/17 Status: DiscontinuedbusPIRone 10 mg oral tablet 10 mg=1 tab, PO, BID, 0 Refill(s) Start Date: 10/31/17 Status: Orderedcalcium carbonate 500 mg (200 mg elemental calcium) oral tablet 500 mg, 1 tab, Route: PO, Drug form: CHEWTAB, PRN, Dosing Weight 85.3, kg, PRN Abnormal Lab Result, FOR ICU USE ONLY, Start date: 10/31/17 22:57:00 CDT, Duration: 30 day, Stop date: 11/30/17 22:56:00 CDT Notes: (Same As: Sadia)Calcium Carbonate 500 xz=577 mg elemental calcium Dose=_ mg calcium carbonate ( mg elemental calcium) Start Date: 10/31/17 Stop Date: 11/01/17 Status: Discontinuedcalcium carbonate 500 mg (200 mg elemental calcium) oral tablet 1,000 mg, 2 tab, Route: PO, Drug form: CHEWTAB, PRN, Dosing Weight 85.3, kg, PRN Abnormal Lab Result, FOR ICU USE ONLY, Start date: 10/31/17 22:57:00 CDT, Duration: 30 day, Stop date: 11/30/17 22:56:00CDT Notes: (Same As: Sadia)Calcium Carbonate 500 zv=244 mg elemental calcium Dose=_ mg calcium carbonate ( mg elemental calcium) Start Date: 10/31/17 Stop Date: 11/01/17 Status: Discontinuedcalcium gluconate 1 gm, 50 mL, Route: IVPB, Drug form: INJ, PRN, Dosing Weight 85.3, kg, PRN Abnormal Lab Result, Start date: 10/31/17 22:57:00 CDT, Duration: 30 day, Stop date: 11/30/17 22:56:00 CDT, FOR ICU USE ONLY Notes: WASTE: F/P - Sink; E - Municipal Trash Bin Start Date: 10/31/17 Stop Date: 11/01/17 Status: DiscontinuedcloNIDine 0.1 mg oral tablet 0.1 mg=1 tab, PO, BID, 0 Refill(s) Start Date: 10/31/17 Stop Date: 11/01/17 Status: DeletedcloNIDine 0.1 mg oral tablet 0.1 mg, 1 tab, Route: PO, Drug form: TAB, BID, kg, Start date: 11/01/17 9:00:00 CDT, Duration: 30 day, Stop date: 11/30/17 17:00:00 CDT Notes: (Same As: Catapres) Start Date: 11/01/17 Stop Date: 11/01/17 Status: Discontinueddocusate 100 mg, 1 cap, Route: PO, Drug form: CAP, Q12H, Dosing Weight 85.3, kg, Start date: 11/01/17 9:00:00CDT, Duration: 30 day, Stop date: 11/30/17 21:00:00 CDT Notes: (Same as: Colace) (Do Not Crush) Start Date: 11/01/17 Stop Date: 11/02/17 Status: Discontinueddocusate 100 mg, 1 cap, Route: PO, Drug form: CAP, Q12H, kg, Start date: 11/01/17 9:00: 00 CDT, Duration: 30 day, Stop date: 11/30/17 21:00:00 CDT Notes: (Same as: Colace) (Do Not Crush) Start Date: 11/01/17 Stop Date: 11/01/17 Status: DiscontinuedFLUoxetine 20 mg, 1 cap, Route: PO, Drug form: CAP, Daily, kg, Start date: 11/01/17 9:00: 00 CDT, Duration: 30 day, Stop date: 11/30/17 9:00:00 CDT Notes: (Same as: Prozac, Sarafem) Start Date: 11/01/17 Stop Date: 11/02/17 Status: Discontinuedfolic acid 1 mg, 1 tab, Route: PO, Drug form: TAB, Daily, Dosing Weight 85.3, kg, Start date: 11/01/17 9:00:00 CDT, Duration: 5 day, Stop date: 11/05/17 9:00:00 CDT Notes: (Same as: Folvite) Start Date: 11/01/17 Stop Date: 11/01/17 Status: Discontinuedgabapentin 300 mg oral capsule 300 mg, 1 cap, Route: PO, Drug form: CAP, Q12H, kg, (CrCl 30 - 59 ml/min), Start date: 11/01/17 9:00:00 CDT, Duration: 30 day, Stop date: 11/30/17 21:00: 00 CDT Notes: (Same as: Neurontin) Start Date: 11/01/17 Stop Date: 11/02/17 Status: Discontinuedgabapentin 300 mg oral capsule 300 mg=1 cap, PO, BID, 0 Refill(s) Start Date: 10/31/17 Status: OrderedKlonoPIN 0.5 mg, 1 tab, Route: PO, Drug form: TAB, Daily, Dosing Weight 85.3, kg, Start date: 11/02/17 9:00:00 CDT, Duration: 30 day, Stop date: 12/01/17 9:00:00 CDT Notes: (Same As: KlonoPIN) Start Date: 11/02/17 Stop Date: 11/02/17 Status: DiscontinuedKlonoPIN 0.5 mg, 1 tab, Route: PO, Drug form: TAB, BID, Dosing Weight 85.3, kg, Start date: 11/02/17 9:00:00 CDT, Duration: 30 day, Stop date: 12/01/17 17:00:00 CDT Notes: (Same As: KlonoPIN) Start Date: 11/02/17 Stop Date: 11/01/17 Status: CanceledKlonoPIN 0.5 mg, 1 tab, Route: PO, Drug form: TAB, BID, Dosing Weight 85.3, kg, Start date: 11/01/17 18:00:00CDT, Duration: 30 day, Stop date: 12/01/17 17:00:00 CDT Notes: (Same As: KlonoPIN) Start Date: 11/01/17 Stop Date: 11/02/17 Status: DiscontinuedKlonoPIN 0.5 mg oral tablet 0.5 mg=1 tab, PO, BID, # 60 tab, 0 Refill(s) Start Date: 11/01/17 Stop Date: 11/02/17 Status: DiscontinuedLORazepam 2 mg, 1 mL, Route: IVP, Drug form: INJ, Q2H, Dosing Weight 85.3, kg, PRN Other - See Comment, CIWA Score 8 -14, Start date: 10/31/17 23:01:00 CDT, Duration: 30 day, Stop date: 11/30/17 23:00:00 CDT Notes: (Same as: Ativan) Start Date: 10/31/17 Stop Date: 11/01/17 Status: DiscontinuedLORazepam 6 mg, 3 mL, Route: IVP, Drug form: INJ, Q2H, Dosing Weight 85.3, kg, PRN Other - See Comment, CIWA Score > 20, Start date: 10/31/17 23:01:00 CDT, Duration: 30 day, Stop date: 11/30/17 23:00:00 CDT Notes: (Same as: Ativan) Start Date: 10/31/17 Stop Date: 11/01/17 Status: DiscontinuedLORazepam 4 mg, 2 mL, Route: IVP, Drug form: INJ, Q2H, Dosing Weight 85.3, kg, PRN Other - See Comment, CIWA Score 15-20, Start date: 10/31/17 23:01:00 CDT, Duration: 30 day, Stop date: 11/30/17 23:00:00 CDT Notes: (Same as: Ativan) Start Date: 10/31/17 Stop Date: 11/01/17 Status: Discontinuedmagnesium oxide 800 mg, 2 tab, Route: PO, Drug form: TAB, PRN, Dosing Weight 85.3, kg, PRN Abnormal Lab Result, FOR ICU USE ONLY, Start date: 10/31/17 22:57:00 CDT, Duration: 30 day, Stop date: 11/30/17 22:56:00 CDT Notes: (Same as: Mag-Ox 400)Magnesium oxide [id number] elemental magnesiumDose= ____mg magnesium oxide (___mg elemental magnesium) Start Date: 10/31/17 Stop Date: 11/01/17 Status: Discontinuedmagnesium sulfate 2 gm, 50 mL, Route: IVPB, Drug form: INJ, PRN, Dosing Weight 85.3, kg, PRN Abnormal Lab Result, Start date: 10/31/17 22:57:00 CDT, Duration: 30 day, Stop date: 11/30/17 22:56:00 CDT, FOR ICU USE ONLY Notes: WASTE: F/P - Sink; E - Municipal Trash Bin Start Date: 10/31/17 Stop Date: 11/01/17 Status: Discontinuedmultivitamin 1 tab, Route: PO, Drug Form: TAB, Dosing Weight 85.3, kg, Daily, Start date: 9:00:00 CDT, Duration: 5 day, Stop date: 11/05/17 9:00:00 CDT Notes: (Same as:Thera)WASTE: F/P - Black; E - Municipal Trash Bin Take with food. Start Date: 11/01/17 Stop Date: 11/02/17 Status: Discontinuednicotine 14 mg, 1 patch, Route: TOP, Drug form: ERFILM, Daily, Dosing Weight 85.3, kg, Priority: NOW, Start date: 10/31/17 23:05:00 CDT, Duration: 30 day, Stop date: 11/30/17 9:00:00 CDT Notes: (Same as: Habitrol)"Remove old patch before application of new patch "WASTE: F/P - P Waste Black; E - P Waste Black Start Date: 10/31/17 Stop Date: 11/02/17 Status: Discontinuednystatin topical 100,000 units/g powder 1 appl, Route: TOP, PRN, Drug form: PWDR, PRN For Fungal Prophylaxis, Start date : 10/31/17 22:57:00 CDT, Duration: 30 day, Stop date: 11/30/17 22:56:00 CDT Notes: (Same as:Mycostatin, Nilstat) For external use only. Start Date: 10/31/17 Stop Date: 11/02/17 Status: Discontinuednystatin topical 100,000 units/g powder 1 appl, Route: TOP, PRN, Drug form: PWDR, PRN For Fungal Prophylaxis, Start date : 10/31/17 22:25:00 CDT, Duration: 30 day, Stop date: 11/30/17 22:24:00 CDT Notes: (Same as:Mycostatin, Nilstat) For external use only. Start Date: 10/31/17 Stop Date: 11/02/17 Status: Discontinuedpotassium chloride 20 mEq, 15 mL, Route: NJ, Drug form: LIQ, PRN, Dosing Weight 85.3, kg, PRN Abnormal Lab Result, Start date: 10/31/17 22:57:00 CDT, Duration: 30 day, Stop date: 11/30/17 22:56:00 CDT, FOR ICU USE ONLY Notes: (Same as: Potassium Chloride) Start Date: 10/31/17 Stop Date: 11/01/17 Status: Discontinuedpotassium chloride 20 mEq, 1 tab, Route: PO, Drug form: ERTAB, PRN, Dosing Weight 85.3, kg, PRN Abnormal Lab Result, Start date: 10/31/17 22:57:00 CDT, Duration: 30 day, Stop date: 11/30/17 22:56:00 CDT, FOR ICU USE ONLY Notes: (Same as: K-Dur 20)"Do Not Crush"For patients unable to swallow tablet, dissolve in one half glass of water. Allow about 2 minutes for the tablets to disintegrate. Stir before giving to prepare slurry and administer.Please exclude Patients with feeding tube less than 14 Arabic (Dobhoff, J-tube etc) and pediatric and patients. With food and full glass of water Start Date: 10/31/17 Stop Date: 11/01/17 Status: Discontinuedpotassium chloride 10 mEq, 100 mL, Route: IVPB, Drug form: INJ, PRN, Dosing Weight 85.3, kg, PRN Abnormal Lab Result, Via peripheral line, Start date: 10/31/17 22:57:00 CDT, Duration: 30 day, Stop date: 11/30/17 22:56:00CDT, FOR ICU USE ONLY Notes: Infuse at a rate of 10 mEq/hr.(Same as: KCL) Start Date: 10/31/17 Stop Date: 11/01/17 Status: Discontinuedpotassium chloride 20 mEq, 100 mL, Route: IVPB, Drug form: INJ, PRN, Dosing Weight 85.3, kg, PRN Abnormal Lab Result, Via central line, Start date: 10/31/17 22:57:00 CDT, Duration: 30 day, Stop date: 11/30/17 22:56:00 CDT, FOR ICU USE ONLY Notes: (Same as: KCL) Infuse no faster than 10 mEq/hr if given peripherally. Start Date: 10/31/17 Stop Date: 11/01/17 Status: Discontinuedpotassium phosphate + Dextrose 5% in Water IV 250 mL 45 mmol, 15 mL, Route: IVPB, PRN, Dosing Weight 85.3, kg, PRN Abnormal Lab Result, Start date: 10/31/17 22:57:00 CDT, Duration: 30 day, Stop date: 22:56:00 CDT, FOR ICU USE ONLY Notes: (Same as: K Phosphate.) 1 mMol phoshate has 1.47 mEq potassium Infuse over 4 hours Start Date: 10/31/17 Stop Date: 11/01/17 Status: Discontinuedpotassium phosphate + Dextrose 5% in Water IV 250 mL 30 mmol, 10 mL, Route: IVPB, PRN, Dosing Weight 85.3, kg, PRN Abnormal Lab Result, Start date: 10/31/17 22:57:00 CDT, Duration: 30 day, Stop date: 22:56:00 CDT, FOR ICU USE ONLY Notes: (Same as: K Phosphate.) 1 mMol phoshate has 1.47 mEq potassium Infuse over 4 hours Start Date: 10/31/17 Stop Date: 11/01/17 Status: Discontinuedpotassium phosphate + Dextrose 5% in Water IV 250 mL 15 mmol, 5 mL, Route: IVPB, PRN, Dosing Weight 85.3, kg, PRN Abnormal Lab Result , Start date: 10/31/17 22:57:00 CDT, Duration: 30 day, Stop date: 11/30/17 22:56 :00 CDT, FOR ICU USE ONLY Notes: (Same as: K Phosphate.) 1 mMol phoshate has 1.47 mEq potassium Infuse over 4 hours Start Date: 10/31/17 Stop Date: 11/01/17 Status: Discontinuedpotassium phosphate-sodium phosphate 250 mg-280 mg-160 mg oral powder for reconstitution 500 mg, 2 tab, Route: PO, Drug Form: TAB, Dosing Weight 85.3, kg, PRN, PRN Abnormal Lab Result, FOR ICU USE ONLY, Start date: 10/31/17 22:57:00 CDT, Duration: 30 day, Stop date: 11/30/17 22:56:00 CDT Notes: (Same as: K-Phos Neutral, Phospha 250 Neutral) Start Date: 10/31/17 Stop Date: 11/01/17 Status: DiscontinuedPROzac 20 mg oral capsule 20 mg=1 cap, PO, Daily, 0 Refill(s) Start Date: 10/31/17 Status: OrderedSaline Flush 0.9% 10 ml, Route: IVP, Drug Form: INJ, Dosing Weight 85.3, kg, Q12H, Start date: 9:00:00 CDT, Duration: 30 day, Stop date: 11/30/17 21:00:00 CDT Notes: (Same as: BD Posiflush) Start Date: 11/01/17 Stop Date: 11/02/17 Status: DiscontinuedSaline Flush 0.9% 10 ml, Route: IVP, Drug Form: INJ, Dosing Weight 85.3, kg, PRN, PRN Line Flush, Start date: 10/31/1821:57:00 CDT, Duration: 30 day, Stop date: 11/30/17 22:56: 00 CDT Notes: (Same as: BD Posiflush) Start Date: 10/31/17 Stop Date: 11/02/17 Status: DiscontinuedSaline Flush 0.9% 10 ml, Route: IVP, Drug Form: INJ, kg, Q12H, Start date: 11/01/17 9:00:00 CDT, Duration: 30 day, Stop date: 11/30/17 21:00:00 CDT Notes: (Same as: BD Posiflush) Start Date: 11/01/17 Stop Date: 11/01/17 Status: DiscontinuedSaline Flush 0.9% 10 ml, Route: IVP, Drug Form: INJ, kg, PRN, PRN Line Flush, Start date: 22:25:00 CDT, Duration: 30 day, Stop date: 11/30/17 22:24:00 CDT Notes: (Same as: BD Posiflush) Start Date: 10/31/17 Stop Date: 11/01/17 Status: Discontinuedsenna 8.6 mg, 1 tab, Route: PO, Drug Form: TAB, Dosing Weight 85.3, kg, Q12H, Start date: 11/01/17 9:00:00CDT, Duration: 30 day, Stop date: 11/30/17 21:00:00 CDT Notes: (Same as: Senokot) Start Date: 11/01/17 Stop Date: 11/02/17 Status: DiscontinuedSEROquel 100 mg, 1 tab, Route: PO, Drug form: TAB, BID, kg, Start date: 11/01/17 9:00:00 CDT, Duration: 30 day, Stop date: 11/30/17 17:00:00 CDT Notes: (Same as: SEROquel) Start Date: 11/01/17 Stop Date: 11/02/17 Status: DiscontinuedSEROquel 100 mg oral tablet 100 mg=1 tab, PO, BID, 0 Refill(s) Start Date: 10/31/17 Status: OrderedSodium Chloride 0.9% IV 250 mL, Route: IVPB, Start date: 11/01/17 16:27:00 CDT, Duration: 30 day, Stop date: 12/01/17 16:26:00 CDT, PRN Line Flush Start Date: 11/01/17 Stop Date: 11/02/17 Status: DiscontinuedSodium Chloride 0.9% IV 1,000 mL 1,000 mL, Rate: 100 ml/hr, Infuse over: 10 hr, Route: IV, Dosing Weight 85.3 kg , Total Volume: 1,000, Start date: 11/01/17 0:24:00 CDT, Duration: 30 day, Stop date: 12/01/17 0:23:00 CDT, 2.09, m2 Start Date: 11/01/17 Stop Date: 11/02/17 Status: DiscontinuedSodium Chloride 0.9% IV 1,000 mL + M.V.I.-12 10 mL Daily + folic acid IV 1 mg Daily + thiamine IV 1 1,000 mL, Rate: 100 ml/hr, Infuse over: 10.1 hr, Route: IV, Dosing Weight 85.3 kg, Total Volume: 1,011.2, Start date: 10/31/17 23:01:00 CDT, Duration: 3 day, Stop date: 11/03/17 23:00:00 CDT, 2.09, m2 Start Date: 10/31/17 Stop Date: 11/02/17 Status: Discontinuedsodium phosphate + Dextrose 5% in Water IV 250 mL 45 mmol, 15 mL, Route: IVPB, PRN, Dosing Weight 85.3, kg, PRN Abnormal Lab Result, Start date: 10/31/17 22:57:00 CDT, Duration: 30 day, Stop date: 22:56:00 CDT, FOR ICU USE ONLY Start Date: 10/31/17 Stop Date: 11/01/17 Status: Discontinuedsodium phosphate + Dextrose 5% in Water IV 250 mL 30 mmol, 10 mL, Route: IVPB, PRN, Dosing Weight 85.3, kg, PRN Abnormal Lab Result, Start date: 10/31/17 22:57:00 CDT, Duration: 30 day, Stop date: 22:56:00 CDT, FOR ICU USE ONLY Start Date: 10/31/17 Stop Date: 11/01/17 Status: Discontinuedsodium phosphate + Dextrose 5% in Water IV 250 mL 15 mmol, 5 mL, Route: IVPB, PRN, Dosing Weight 85.3, kg, PRN Abnormal Lab Result , Start date: 10/31/17 22:57:00 CDT, Duration: 30 day, Stop date: 11/30/17 22:56 :00 CDT, FOR ICU USE ONLY Start Date: 10/31/17 Stop Date: 11/01/17 Status: Discontinuedthiamine 100 mg, 1 tab, Route: PO, Drug form: TAB, Daily, Dosing Weight 85.3, kg, Start date: 11/01/17 9:00:00 CDT, Duration: 5 day, Stop date: 11/05/17 9:00:00 CDT Notes: (Same As: Vitamin B1) Start Date: 11/01/17 Stop Date: 11/02/17 Status: Discontinued Results ELECTROLYTES Most recent to oldest 1 2 3 [Reference Range]: Sodium Lvl [135-145 mEq/L] 143 mEq/L 146 mEq/L (11/02/17 4:20 AM) *HI* (10/31/17 11:16 PM) Potassium Lvl [3.5-5.1 3.7 mEq/L 4.1 mEq/L 3.8 mEq/L mEq/L] (11/02/17 4:20 AM) (11/01/17 4:31 AM) (10/31/17 11:16 PM) Chloride Lvl [95-109 mEq/L] 108 mEq/L 115 mEq/L (11/02/17 4:20 AM) *HI* (10/31/17 11:16 PM) CO2 [24-32 mEq/L] 27 mEq/L 24 mEq/L (11/02/17 4:20 AM) (10/31/17 11:16 PM) AGAP [10.0-20.0 mEq/L] 11.7 mEq/L 10.8 mEq/L (11/02/17 4:20 AM) (10/31/17 11:16 PM) CHEM PANEL Most recent to oldest [Reference Range]: 1 2 3 Creatinine Lvl [0.50-1.40 mg/dL] 0.80 mg/dL 0.70 mg/dL (11/02/17 4:20 AM) (10/31/17 11:16 PM) eGFR 120 mL/min/1.73m2 1 127 mL/min/1.73m2 2 *NA* *NA* (11/02/17 4:20 AM) (10/31/17 11:16 PM) BUN [7-22 mg/dL] 7 mg/dL 5 mg/dL (11/02/17 4:20 AM) *LOW* (10/31/17 11:16 PM) B/C Ratio [6-25] 9 7 (11/02/17 4:20 AM) (10/31/17 11:16 PM) Glucose Lvl [70-99 mg/dL] 96 mg/dL 88 mg/dL (11/02/17 4:20 AM) (10/31/17 11:16 PM) Total Protein [6.4-8.4 g/dL] 6.3 g/dL 6.0 g/dL *LOW* *LOW* (11/02/17 4:20 AM) (10/31/17 11:16 PM) Albumin Lvl [3.5-5.0 g/dL] 3.1 g/dL 3.0 g/dL *LOW* *LOW* (11/02/17 4:20 AM) (10/31/17 11:16 PM) Globulin [2.7-4.2 g/dL] 3.2 g/dL 3.0 g/dL (11/02/17 4:20 AM) (10/31/17 11:16 PM) A/G Ratio [0.7-1.6] 1.0 1.0 (11/02/17 4:20 AM) (10/31/17 11:16 PM) Calcium Lvl [8.5-10.5 mg/dL] 8.6 mg/dL 7.9 mg/dL (11/02/17 4:20 AM) *LOW* (10/31/17 11:16 PM) Phosphorus [2.5-4.5 mg/dL] 2.8 mg/dL (10/31/17 11:16 PM) Magnesium Lvl [1.8-2.4 mg/dL] 2.2 mg/dL (10/31/17 11:16 PM) ALT [0-65 unit/L] 25 unit/L 28 unit/L (11/02/17 4:20 AM) (6/14/18 11:16 PM) AST [0-37 unit/L] 11 unit/L 17 unit/L (11/02/17 4:20 AM) (10/31/17 11:16 PM) Alk Phos [39-136 unit/L] 80 unit/L 83 unit/L (11/02/17 4:20 AM) (10/31/17 11:16 PM) Bili Total [0.2-1.3 mg/dL] 0.1 mg/dL 0.2 mg/dL *LOW* (10/31/17 11:16 PM) (11/02/17 4:20 AM) Lactic Acid Lvl [0.5-2.2 mMol/L] 0.8 mMol/L (10/31/17 11:16 PM) Procalcitonin Lvl [0.00-0.10] <0.05 (10/31/17 11:21 PM) 1Result Comment: The eGFR is calculated using the CKD-EPI formula. In most young , healthy individualsthe eGFR will be >90 mL/min/1.73m2. The eGFR declines with age. An eGFR of 60-89 may be normal insome populations, particularly the elderly, for whom the CKD-EPI formula has not been extensively validated. Use of the eGFR is not recommended in the following populations: Individuals with unstable creatinine concentrations, including patients and those with serious co-morbid conditions. Patients with extremes in muscle mass or diet. The data above are obtained from the National Kid[employer] Disease Education Program ( NKDEP) which additionally recommends that when the eGFR is used in patients with extremes of body mass index for purposesof drug dosing, the eGFR should be multiplied by the estimated BMI.2Result Comment: The eGFR is calculated using the CKD-EPI formula. In most young, healthy individualsthe eGFR will be >90 mL/min/1.73m2. The eGFR declines with age. An eGFR of 60-89 may be normal insome populations, particularly the elderly, for whom the CKD-EPI formula has not been extensively validated. Use of the eGFR is not recommended in the following populations: Individuals with unstable creatinine concentrations, including patients and those with serious co-morbid conditions. Patients with extremes in muscle mass or diet. The data above are obtained from the National Kidney Disease Education Program ( NKDEP) which additionally recommends that when the eGFR is used in patients with extremes of body mass index for purposesof drug dosing, the eGFR should be multiplied by the estimated BMI.CARDIAC ENZYMES Most recent to oldest 1 2 3 [Reference Range]: Troponin-I [0.00-0.40 ng/mL] <0.02 ng/mL <0.02 ng/mL <0.02 ng/mL (11/01/17 2:01 PM) (11/01/17 4:31 AM) (10/31/17 11:16 PM) BNP [<=100 pg/mL] 37 pg/mL (10/31/17 11:16 PM) PARATHYROID PROFILE Most recent to oldest [Reference Range]: 1 2 3 Ca Ion WB [1.05-1.25 mMol/L] 1.10 mMol/L (10/31/17 11:12 PM) Ca Norm WB [1.05-1.25 mMol/L] 1.07 mMol/L (10/31/17 11:12 PM) DRUG SCREEN Most recent to oldest [Reference Range]: 1 2 3 U Amph Scr [Negative] Positive *ABN* (10/31/17 11:16 PM) U Sharee Scr [Negative] Negative *NA* (10/31/17 11:16 PM) U Benzodia Scr [Negative] Negative *NA* (10/31/17 11:16 PM) U Cocaine Scr [Negative] Negative *NA* (10/31/17 11:16 PM) U Opiate Scr [Negative] Negative *NA* (10/31/17 11:16 PM) U Phencyc Scr [Negative] Negative *NA* (10/31/17 11:16 PM) U Cannab Scr [Negative] Negative *NA* (10/31/17 11:16 PM) UDS Note See Note (10/31/17 11:16 PM) TOXICOLOGY Most recent to oldest [Reference Range]: 1 2 3 Acetaminoph Lvl [10-20 ug/ml] <2 ug/ml *LOW* (10/31/17 11:12 PM) Salicylate Lvl [0.0-30.0 mg/dL] 2.1 mg/dL (10/31/17 11:12 PM) Etoh (%) <.003 % *NA* (10/31/17 11:12 PM) Ethanol Lvl <3 mg/dL *NA* (10/31/17 11:12 PM) URINE AND STOOL Most recent to oldest [Reference Range]: 1 2 3 UA Turbidity [Clear] Clear (10/31/17 11:23 PM) UA Color Ltyellow *NA* (10/31/17 11:23 PM) UA pH [5.0-8.0] 6.0 (10/31/17 11:23 PM) UA Spec Grav [<=1.030] 1.009 (10/31/17 11:23 PM) UA Glucose [Negative mg/dL] Negative mg/dL *NA* (10/31/17 11:23 PM) UA Blood [Negative] Negative (10/31/17 11:23 PM) UA Ketones [Negative mg/dL] Negative mg/dL *NA* (10/31/17 11:23 PM) UA Protein [Negative mg/dL] Negative mg/dL (10/31/17 11:23 PM) UA Urobilinogen [0.1-1.0 mg/dL] <=1.0 mg/dL *NA* (10/31/17 11:23 PM) UA Bili [Negative] Negative *NA* (10/31/17 11:23 PM) UA Leuk Est [Negative] Negative (10/31/17 11:23 PM) UA Nitrite [Negative] Negative (10/31/17 11:23 PM) UA RBC [0-2 /HPF] 1 /HPF (10/31/17 11:23 PM) UA Sq Epi None Seen *NA* (10/31/17 11:23 PM) HEMATOLOGY Most recent to oldest [Reference Range]: 1 2 3 WBC [3.7-10.4 K/CMM] 7.7 K/CMM 10.5 K/CMM (11/02/17 4:20 AM) *HI* (10/31/17 11:16 PM) RBC [4.70-6.10 M/CMM] 4.40 M/CMM 4.45 M/CMM *LOW* *LOW* (11/02/17 4:20 AM) (10/31/17 11:16 PM) Hgb [14.0-18.0 g/dL] 13.2 g/dL 13.8 g/dL *LOW* *LOW* (11/02/17 4:20 AM) (10/31/17:16 PM) Hct [42.0-54.0 %] 40.7 % 40.5 % *LOW* *LOW* (11/02/17 4:20 AM) (10/31/17:16 PM) MCV [80.0-94.0 fL] 92.5 fL 90.9 fL (11/02/17 4:20 AM) (10/31/17:16 PM) MCH [27.0-31.0 pg] 30.0 pg 30.9 pg (11/02/17 4:20 AM) (10/31/17 11:16 PM) MCHC [32.0-36.0 g/dL] 32.4 g/dL 34.0 g/dL (11/02/17 4:20 AM) (10/31/17:16 PM) RDW [11.5-14.5 %] 14.4 % 14.1 % (11/02/17 4:20 AM) (10/31/17:16 PM) MPV [7.4-10.4 fL] 8.9 fL 8.6 fL (11/02/17 4:20 AM) (10/31/17 11:16 PM) Platelet [133-450 K/CMM] 273 K/CMM 230 K/CMM (11/02/17 4:20 AM) (10/31/17:16 PM) Segs [45.0-75.0 %] 54.0 % 71.9 % (11/02/17 4:20 AM) (10/31/17:16 PM) Lymphocytes [20.0-40.0 %] 32.1 % 18.0 % (11/02/17 4:20 AM) *LOW* (10/31/17:16 PM) Monocytes [2.0-12.0 %] 11.0 % 8.1 % (11/02/17 4:20 AM) (10/31/17 11:16 PM) Eosinophils [0.0-4.0 %] 2.5 % 1.8 % (11/02/17 4:20 AM) (10/31/17 11:16 PM) Basophils [0.0-1.0 %] 0.4 % 0.2 % (11/02/17 4:20 AM) (10/31/17 11:16 PM) Segs-Bands # [1.5-8.1 K/CMM] 4.2 K/CMM 7.6 K/CMM (11/02/17 4:20 AM) (10/31/17 11:16 PM) Lymphocytes # [1.0-5.5 K/CMM] 2.5 K/CMM 1.9 K/CMM (11/02/17 4:20 AM) (10/31/17 11:16 PM) Monocytes # [0.0-0.8 K/CMM] 0.8 K/CMM 0.8 K/CMM (11/02/17 4:20 AM) (10/31/17 11:16 PM) Eosinophils # [0.0-0.5 K/CMM] 0.2 K/CMM 0.2 K/CMM (11/02/17 4:20 AM) (10/31/17 11:16 PM) Basophils # [0.0-0.2 K/CMM] 0.0 K/CMM (10/31/17 11:16 PM) PT [12.0-14.7 seconds] 13.7 seconds (10/31/17 11:16 PM) INR [0.85-1.17] 1.05 (10/31/17 11:16 PM) PTT [22.9-35.8 seconds] 35.1 seconds (10/31/17 11:16 PM) BACTERIAL - SEROLOGY Most recent to oldest [Reference Range]: 1 2 3 MRSA by PCR Negative (10/31/17 11:12 PM) Source Strep Urine *NA* (10/31/17 11:23 PM) Strep pneumoniae Ag [Negative] Negative (10/31/17 11:23 PM) Immunizations Given and Recorded Vaccine Date Status Refusal Reason pneumococcal 23-valent vaccine 11/02/17 Given Procedures No data available for this section Social History Social History Type Response Alcohol Current, Frequency: Daily. 18 Drinks/Episode average. Last use: 10/30/2017. Previous treatment: None. Alcohol use interferes with work or home: Yes. Drinks more than intended: Yes. Others hurt by drinking: No. Ready to change: No. Household alcohol concerns: No. Smoking Status Current every day smoker; Type: Cigarettes; Previous treatment : None; Ready to change: No; Concerns about tobacco use in household: Yes; Exposure to Tobacco Smoke None; Cigarette Smoking Last 365 Days Yes; Reg Smoking Cessatio n Counseling Yes; Tobacco use per day: 1; Number of years: 16; Started at age : 16.0; entered on: 11/01/17 Assessment and Plan Extracted from: Title: Progress Note Author: Colleen Craven MD Date: 11/02/17 32 y/o M with PMHx of Schizoaffective Disorder, Bipolar Disorder and Major Depressive Disorder w/ recurrent psychosis and prior suicide attempts who was transferred from OSH for hypotension after OD on seroquel in a suicide attempt. 1.Suicide attempt by other psychotropic drug overdose -drug overdose on seroquel -h/o suicide attempts in past -PRT consulted, would like to re-evaluate per 11/01 note -contacted PRT again this AM to re-evaluate pt today as he is ready for d/c medically -continue 1:1 sitter -per patient he is on [facility] rehab wait list 2.History of alcohol abuse -CIWA currently 0 -Ativan 1 mg q6h PRN for withdrawal -will continue to monitor -continue thiamine and multivitamin daily 3.Schizoaffective disorder -h/o chronic auditory hallucinations, none currently -continue seroquel 100 BID daily 4.Bipolar disorder -continue psych meds: fluoxetine, seroquel, buspar, klonopin 5.Major depression -continue fluoxetine 20 mg daily -continue buspar 10 BID 6.Anxiety -given that patient will not be able to get Rx for Klonopin after d/c, will wean benzos -decreased klonopin from 0.5 BID to 0.5 daily -continue buspar 10 BID 7.Tobacco user -continue nicotine patch 8.Leukocytosis -resolved 9.Normocytic anemia -Hgb 13.2, slightly low -likely hemodilutional 2/2 IVF, pt tolerating PO will stop IVF -will repeat in AM 10.Sciatic pain -continue gabapentin 300 BID SCDs/Ambulation inpatient pending PRT clearance Pt discussed with attending, Dr. Adam. Colleen Craven MD PGY-1 MSO#[id number] Addendum by Sparkle Adam MD on 11/02/2017 15:21 CDT Preceptor Attestation We discussed the patient at or immediately after the time of the visit. My participation in the patient s care is as follows: HISTORY:I reviewed the history obtained by the resident. EXAM:I reviewed the exam performed by the resident. MEDICAL DECISION MAKING:The decision making was performed by the resident, and I agree with those plans. Sparkle Adam MD, BEATRICE, CMQ, FAA Family Medicine Faculty 11/02/2017 15:21
== END 2018-02-10 09:18 | disposition home or self-care (01) ==
LOC: ER 19:56
DX: F31.9 Bipolar disorder, unspecified (principal)
CPT/HCPCS: 36415; 80048; 80076; 80307; 80320; 80329; 81003; 85025; 85610; 85730; 93005; 99285